=== PATIENT | male | born 1940 | race Caucasian/White ===

== ENCOUNTER 2016-08-25 14:20 | Emergency (ER) | payer MEDICARE, BC ==
[2016-08-25 14:31] VITALS: BP 156/72
[2016-08-25] MEDS ORDERED: AMIODARONE HCL 50 MG/ML AMPUL IV STA (14:46)
[2016-08-25] MEDS ORDERED: HEPARIN SODIUM,PORCINE/D5W 25,000 UNITS/500 ML BAG IV PRN (14:47)
[2016-08-25] MEDS ORDERED: HEPARIN SODIUM,PORCINE 5,000 UNITS/ML VIAL IV ONE (14:47)
[2016-08-25] MEDS ORDERED: HEPARIN SODIUM,PORCINE/D5W 25,000 UNITS/500 ML BAG IV ONE (14:52)
[2016-08-25] MEDS ORDERED: HEPARIN SODIUM,PORCINE 5,000 UNITS/ML VIAL ONE (14:52)
[2016-08-25 15:01] LABS: Hematocrit 41.5 % (42.0-52.0); Hemoglobin 13.8 gm/dL (13.5-18.0); Mean Cell Volume 92.2 fl (78-100); Mean Corpuscular Hemoglobin 30.7 pg (27-31); Mean Corpuscular Hgb Conc 33.3 g/dl (32-36); Mean Platelet Volume 11.1 fl (6.0-9.5); Neutrophil % 65.7 % (42-75.0); Platelet Count 176 K/mm3 (150-450); Red Cell Distribution Width 12.4 % (11.5-14.0); White Blood Count 7.5 K/mm3 (4.0-10.5)
[2016-08-25 15:06] LABS: Prothrombin Time (Patient) 10.7 Seconds (9.4-11.4)
[2016-08-25 15:07] LABS: INR 1.03 INR (0.90-1.10)
[2016-08-25 15:14] LABS: Albumin * 3.3 gm/dl (3.4-5.0); Anion Gap 10.5 mmol/L (6.8-13.8); BUN/Creatinine Ratio 19.1 (9.0-21.6); Bilirubin, Total 0.3 mg/dL (0.0-1.1); Ca. Corrected For Albumin 9.4 mg/dL (8.4-10.2); Calcium * 9.2 mg/dL (7.9-10.9); Carbon Dioxide 30.9 mmol/L (24-32.6); Potassium 4.4 mmol/L (3.4-4.6)
[2016-08-25 15:16] LABS: Troponin I 0.019 ng/ml (0.00-0.10)
--- NOTE | 2016-08-25 15:19 | ERNOTE ---
Chest Pain/Cardiac HPI Date of Service: 08/25/16 Chief Complaint: Palpitations Time Seen by Provider: 08/25/16 14:32 Source: patient Exam Limitations: no limitations Allergies/Adverse Reactions: Allergies penicillin G Allergy (Verified 08/25/16 14:31) steristrep Allergy (Uncoded 08/25/16 14:31) Home Medications: HOME MEDICATIONS Docusate Sodium [Stool Softener] 100 mg PO BID 01/18/13 [Last Taken Unknown] Iron 65 mg PO BID 01/18/13 [Last Taken Unknown] Metformin HCl [Metformin HCl ER] 1,000 mg PO BID 01/18/13 [Last Taken Unknown] Mirtazapine [Remeron] 30 mg PO HS 01/18/13 [Last Taken Unknown] Multivit-Min/FA/Lycopene/Lut [Centrum Silver Tablet] 1 each PO DAILY 01/18/13 [ Last Taken Unknown] Omeprazole Magnesium [Prilosec Otc] 20 mg PO DAILY 01/18/13 [Last Taken Unknown] Polyethylene Glycol 3350 [Miralax] 17 gm PO HS 01/18/13 [Last Taken Unknown] Quinapril HCl [Accupril] 400 mg PO DAILY 01/18/13 [Last Taken Unknown] Simvastatin [Simvastatin (Zocor)] 40 mg PO HS 01/18/13 [Last Taken Unknown] Spironolactone [Aldactone] 25 mg PO DAILY 01/18/13 [Last Taken Unknown] Torsemide [Demadex] 10 mg PO DAILY 01/18/13 [Last Taken Unknown] Aspirin [Aspirin Chewable] 81 mg PO DAILY 12/19/14 [Last Taken Unknown] Insulin Aspart Protam & Aspart [Novolog Mix 70/30] 34 units SC BID 12/19/14 [ Last Taken Unknown] traMADol HCL [Ultram] 50 mg PO QID PRN #30 tab 12/20/14 [Last Taken Unknown] Celebrex 08/26/15 [Last Taken Unknown] Novolog Flexpen 08/26/15 [Last Taken Unknown] Narrative: Patient comes due to a near syncopal event associated to a fast heart rate. No loss of consciousness occurred in this event. Timing: intermittent Severity/Quality: pressure Location: central Chest Pain Radiation: no radiation Activities at Onset: rest Modifying Factors - Improves: Present: nothing Modifying Factors - Worsens: Present: nothing Nitro Today/Relief: no nitro taken today Aspirin Treatment Today: 81 mg x 1 Associated Symptoms: Present: dizziness, shortness of breath, diaphoresis, palpitations, nausea Prior Chest Pain/Cardiac Workup: Reports: prior chest pain, other - Hx of arrhythmia Prior Treatment: Denies: recently seen Review of Systems - Review of Systems Constitutional: Present: weakness, malaise EYE: Present: no symptoms reported ENT: Present: no symptoms reported Respiratory: Present: shortness of breath. Absent: cough Cardiology: Present: chest pain, palpitations, other - near syncope. Absent: syncope, edema, claudication Gastrointestinal/Abdominal: Present: nausea Genitourinary: Present: no symptoms reported Musculoskeletal: Present: no symptoms reported Skin: Present: no symptoms reported Neurological: Present: no symptoms reported Endocrine: Present: no symptoms reported Hematologic/Lymphatic: Present: no symptoms reported Psych: Present: no symptoms reported - Patient's Past Medical History Patient History - Medical: Diabetes Type 2 Insulin Dependent Patient History - Cancer: Melanoma Patient History - Surgical Procedures: Cataracts, EGD, Total Knee Replacement - Social History Living Situations: home Smoking Status: Never smoker Have you smoked in the past 12 months: No Physical Exam - Physical Exam General Appearance: Present: alert, no apparent distress, obese Eye Exam: Normal inspection: bilateral, PERRL: bilateral, EOMI: bilateral Ears, Nose, Throat: Present: normal ENT inspection, hearing grossly normal, normal pharynx Neck: Present: normal inspection, nontender. Absent: carotid bruit Respiratory: Present: no respiratory distress, normal breath sounds, no accessory muscle use, chest nontender, lungs clear Cardiovascular/Chest: Present: irregularly irregular, extra beats, systolic murmur Peripheral Pulses: N=norm/S=strong/W=weak/B=bound/A=absent: Carotid (R): Normal , Carotid (L): Normal, Radial (R): Normal, Radial (L): Normal, Dorsalis-pedis (R ): Normal, Dorsalis-pedis (L): Normal Gastrointestinal/Abdominal: Present: normal bowel sounds, nontender, nondistended, soft, no organomegaly Male Genitals Exam: Present: normal genitalia, normal prostate, no hernia Back Exam: Present: normal inspection, no CVA tenderness Extremity Exam: Present: normal inspection, non-tender, normal range of motion, pelvis stable, pedal edema Neurological Exam: Present: alert, oriented, normal mood/affect, no motor/ sensory deficits Skin Exam: Present: normal color, warm/dry Lymphatic Exam: Present: no adenopathy ED Progress - Date and Time Seen: Date and Time: 08/25/16 15:09 Patient was on monitor when a sustained Ventricular Tach was noticed. Patient was place on cardiac defibrillator and event broke. Patient had two more events. Patient was given Amiodaron IV and events were controlled. Patient case was consulted at the and Dr. Leonid Moore accepted patient in transfer. Patient has a established relationship with the Cardiac Service at that institution. At this point [facility] has decline transport by [facility] due to weather conditions. Patient has been stabilized up the maximum level that this facility allow. Patient is stable for transfer. 08/25/16 15:31 [facility] has been informed that patient is stable and needs transport. - Results and Orders Patient's Lab Results:: I have reviewed the patient's lab results. Results and Orders: Patient with normal Hgb, normal creatinine and K level. - Vital Signs Patient's Vital Signs:: I have reviewed the patient's vital signs. Vital Signs: Vital Signs 08/25/16 14:29 Pulse Rate 95 Respiratory 14 Rate Blood Pressure 156/72 O2 Sat by Pulse 96 Oximetry - EKG EKG read: Interp. by me EKG Comments: HR: 94, PVCs, No ST Elevation Patient on engine monitor developed VT with pulse. - X-Ray X-Ray #1 X-Ray: chest Interpretation: Interp. by me X-ray Comments: No infiltrates and no consolidations - Progress/Reassessment Chief Complaint: Palpitations Progress:: Improved Progress Note-Subjective: 08/25/16 15:32 Patient is now on a non shockable rhythm. - Transfer of Care Expected Disposition: Transfer Additional Notes: Patient has Hx of VT and has been seen before at the Departure - Departure Clinical Impression: Ventricular tachycardia, Near syncope Disposition: [facility] Condition: Good Referrals: Ulices Buenrostro MD [Primary Care Provider] -
== END 2016-08-25 15:48 | disposition short-term general hospital (02) ==
LOC: ER 14:20
DX: I47.2 Ventricular tachycardia (principal); R55 Syncope and collapse

== ENCOUNTER 2016-09-09 14:29 | Emergency (ER) | payer MEDICARE, BC ==
[2016-09-09 15:18] LABS: Hematocrit 38.5 % (42.0-52.0); Hemoglobin 12.4 gm/dL (13.5-18.0); Mean Cell Volume 93.9 fl (78-100); Mean Corpuscular Hemoglobin 30.2 pg (27-31); Mean Corpuscular Hgb Conc 32.2 g/dl (32-36); Mean Platelet Volume 10.4 fl (6.0-9.5); Neutrophil # 4.4 K/mm3 (1.3-6.0); Neutrophil % 59.9 % (42-75.0); Platelet Count 196 K/mm3 (150-450); Red Cell Distribution Width 12.7 % (11.5-14.0); White Blood Count 7.3 K/mm3 (4.0-10.5)
--- NOTE | 2016-09-09 15:37 | ERNOTE ---
CARDIAC HPI - Narrative Date of Service: 09/09/16 - General Stated Complaint:: Palpitations Time Seen by Provider: 09/09/16 15:10 Source: patient, RN notes reviewed, old records Exam Limitations: no limitations - Pain Score Pain Score #1 Pain Score: 0 - History of Present Illness Initial Comments: 76 y/o male to ED by private vehicle for 3 days of feeling like he is "missing beats." He was discharged from [facility] on 09/05/16. He underwent an ablation for ventricular tachycardia on 09/03/16. He had no further arrhythmias and was discharged home on a Holter monitor. He also reports occasional lightheadedness , but no chest pain or shortness of breath. 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 He did see his PCP, Dr. Buenrostro , for follow up yesterday. He reported some lightheadedness but no palpitations at that visit. Timing/Duration: intermittent Activities at Onset: none Modifying Factors - (Improves): Denies: lying down, rest Modifying Factors - (Worsens): Denies: exercise, movement Associated Symptoms: Absent: chest pain, cough, fever/chills, headaches, malaise , nausea, vomiting, shortness of breath, syncope, weakness - Immun/Allergies/Home Medicatons Immunizations: IMMUNIZATION HX Immunizations Up to Date Yes History of Influenza Vaccine Yes Hx Pneumococcal Vaccination Yes Allergies/Adverse Reactions: Allergies Allergy/AdvReac Type Severity Reaction Status Date / Time penicillin G Allergy Verified 09/09/16 14:52 steristrep Allergy Uncoded 08/25/16 14:31 Home Medications: Ambulatory Orders Medication Instructions Recorded Docusate Sodium [Stool Softener] 100 mg PO BID 01/18/13 Iron 25 mg PO BID 01/18/13 Metformin HCl [Metformin HCl ER] 1,000 mg PO BID 01/18/13 Mirtazapine [Remeron] 30 mg PO HS 01/18/13 Multivit-Min/FA/Lycopene/Lut 1 each PO DAILY 01/18/13 [Centrum Silver Tablet] Omeprazole Magnesium [Prilosec Otc] 20 mg PO DAILY 01/18/13 Polyethylene Glycol 3350 [Miralax] 17 gm PO HS 01/18/13 Quinapril HCl [Accupril] 40 mg PO DAILY 01/18/13 Simvastatin [Simvastatin (Zocor)] 40 mg PO HS 01/18/13 Spironolactone [Aldactone] 25 mg PO DAILY 01/18/13 Torsemide [Demadex] 20 mg PO DAILY 01/18/13 Aspirin [Aspirin Chewable] 81 mg PO DAILY 12/19/14 Insulin Aspart Protam & Aspart 32 units SC BID 12/19/14 [Novolog Mix 70/30] traMADol HCL [Ultram] 50 mg PO QID PRN #30 tab 12/20/14 Celebrex 100 mg PO DAILY 08/26/15 Novolog Flexpen 0 units .ROUTE QID 08/26/15 Flecainide Acetate [Tambocor] 50 mg PO BID #30 tablet 09/09/16 Metoprolol Tartrate [Lopressor] 25 mg PO BID #60 tab 09/09/16 Review of Systems - Review of Systems Constitutional: Absent: chills, fever, malaise EENTM: Present: no symptoms reported Respiratory: Absent: short of breath, wheezing Cardiology: Present: palpitations. Absent: chest pain, syncope Gastrointestinal/Abdominal: Absent: abdominal pain, nausea Genitourinary: Present: no symptoms reported Musculoskeletal: Present: no symptoms reported Skin: Present: no symptoms reported Neurological: Present: dizziness/light-headness. Absent: headache, weakness Endocrine: Present: no symptoms reported Hematologic/Lymphatic: Present: no symptoms reported - Patient's Past Medical History Patient History - Medical: Diabetes Type 2 Insulin Dependent, GERD Patient History - Cardiac/Respiratory: Arrhythmias - VTach, Coronary Heart Disease, Hypertension, Hyperlipidemia, Other Patient History - Cancer: Melanoma Patient History - Surgical Procedures: Cataracts, EGD, Total Knee Replacement Patient History - Other: None - Social History Living Situations: home Abuse History: No History of abuse Psych History: No pertinent hx Smoking Status: Never smoker Have you smoked in the past 12 months: No Alcohol Use: none Drug Use: none - Immunizations Immunizations Up to Date: Yes Hx Pneumococcal Vaccination: Yes History of Influenza Vaccine: Yes CP Exam - Physical Exam General Appearance: Present: WD/WN, no apparent distress, alert Neck: Present: non-tender, supple, normal inspection Respiratory: Present: lungs clear, normal breath sounds, no respiratory distress , no accessory muscle use Cardiovascular/Chest: Present: normal peripheral pulses, no edema, no murmur, irregularly irregular Gastrointestinal/Abdominal: Present: normal bowel sounds, non tender, soft Neurologic: Present: alert, normal mood/affect, oriented x 3 Skin Exam: Present: normal color, warm/dry, no cyanosis ED Progress - PROGRESS/REASSESSMENT Chief Complaint: General Assessment Condition: Unchanged Progress Note-Subjective: 09/09/16 16:[address] Mcmahon at [facility] regarding patient's symptoms. He reviewed the patient's event monitor records. Started Metoprolol and Flecanide per his recommendations. His office is to contact the patient regarding moving up his follow up appointment. Patient in agreement with plan. - VITAL SIGNS Patient's Vital Signs:: I have reviewed the patient's vital signs. Vital Signs - Last Taken Temp 35.9 C L 09/09/16 14:35 Pulse 85 09/09/16 14:35 Resp 20 09/09/16 14:35 BP 125/71 09/09/16 14:35 Pulse Ox 96 09/09/16 14:35 - RESULTS AND ORDERS Patient's Lab Results:: I have reviewed the patient's lab results. Results and Orders: Abnormal/Pending Laboratory Last 24 HRS 09/09/16 15:10 RBC 4.10 L Hgb 12.4 L Hct 38.5 L MPV 10.4 H Immature Gran % (Auto) 0.80 H Immature Gran # (Auto) 0.06 H Monocytes % 9.1 H Eosinophils % 3.8 H - EKG EKG #1 EKG: NSR, premature vent. contract. EKG Read: Reviewed by me - X-Ray X-Ray #1 XRAY: chest X-Ray Interpretation: Reviewed by me X-Ray Comments: Stable chest, no acute cardiopulmonary abnormalities Departure - Departure Clinical Impression: Palpitations, Premature ventricular beats Disposition: Home Follow Up Needed Condition: Stable Instructions: Palpitations, [id number] Additional Instructions: Start new medications Continue wearing your monitor Return for worsening symptoms Dr. Mcmahon's office will call you regarding follow up Referrals: Ulices Buenrostro MD [Primary Care Provider] - Prescriptions: Flecainide Acetate [Tambocor] 50 mg PO BID #30 tablet Metoprolol Tartrate [Lopressor] 25 mg PO BID #60 tab
[2016-09-09 15:39] LABS: Anion Gap 14.1 mmol/L (6.8-13.8); BUN/Creatinine Ratio 17.1 (9.0-21.6); Bilirubin, Total 0.3 mg/dL (0.0-1.1); Ca. Corrected For Albumin 9.1 mg/dL (8.4-10.2); Calcium * 8.6 mg/dL (7.9-10.9); Carbon Dioxide 29.1 mmol/L (24-32.6); Potassium 4.2 mmol/L (3.4-4.6); Total Protein 6.8 gm/dL (6.2-8.2)
[2016-09-09 15:41] LABS: Troponin I 0.097 ng/ml (0.00-0.10)
[2016-09-09 15:42] LABS: Prothrombin Time (Patient) 10.8 Seconds (9.4-11.4)
[2016-09-09 15:44] LABS: INR 1.04 INR (0.90-1.10); Partial Thrombolplastin Time 25.8 Seconds (24-32)
[2016-09-09] MEDS ORDERED: METOPROLOL TARTRATE 25 MG TABLET PO ONE (16:13)
[2016-09-09] MEDS ORDERED: FLECAINIDE ACETATE 100 MG TABLET PO PRN (16:24)
[2016-09-09] MEDS ORDERED: METOPROLOL TARTRATE 25 MG TABLET ONE (16:42)
[2016-09-09 16:49] VITALS: BP 116/53
== END 2016-09-09 16:50 | disposition home or self-care (01) ==
LOC: ER 14:29
DX: R00.2 Palpitations (principal); I49.3 Ventricular premature depolarization; E11.9 Type 2 diabetes mellitus without complications; Z79.4 Long term (current) use of insulin; K21.9 Gastro-esophageal reflux disease without esophagitis; R07.9 Chest pain, unspecified

== ENCOUNTER 2016-09-14 13:15 | Emergency (ER) | payer MEDICARE, BC ==
--- OUTSIDE RECORDS SUMMARY | 2016-09-14 13:34 | XMS REPORT | Continuity of Care Document ---
:1940 Author Organization [facility] ([facility]) Address [address] [place] [address] Phone [phone] Care Team Providers Name Role Phone Ulices Buenrostro Primary Care Provider [phone] Source Comments This disclosure is being made pursuant to the Care Everywhere program, applicable federal and state laws, and may not contain all informaitonavailable regarding this patient.[facility] ([facility]) Active Allergies and Adverse Reactions Allergen Noted Date Severity Reactions Comments Other Agent 06/27/2013 OTHER Steri Strips gave him blood blisters Penicillins Low Urticaria (Hives),Pruritus,Rash Current Medications Prescription Sig. Disp. Refills Start End Date Status Date polyethylene glycol Take 17 g by Active 3350 (GLYCOLAX) 17 mouth as needed. gram/dose powder mirtazapine 30 mg Take 30 mg by Active tablet mouth at bedtime. ferrous sulfate Take 65 mg by Active (IRON, FERROUS mouth 2 times SULFATE,) 325 mg daily. (65 mg iron) tablet multivitamins w/ Take 1 Tab by Active minerals (CENTRUM mouth daily. SILVER) tablet omeprazole Take 20 mg by Active (PRILOSEC OTC) 20 mouth daily. mg EC tablet simvastatin 40 mg Take 40 mg by Active tablet mouth every evening. spironolactone 25 Take 25 mg by Active mg tablet mouth daily. torsemide 20 mg Take 1 Tab by 90 Tab 3 Active tablet mouth daily. 3 Indications: EDEMA docusate (COLACE) Take 1 Cap by 60 Cap 3 Active 100 mg capsule mouth 2 times 3 daily. Indications: CONSTIPATION quinapril 40 mg Take 40 mg by Active tablet mouth daily. fluticasone 50 use 2 Sprays into Active mcg/Actuation nasal both nostrils spray daily as needed. SUPPLY insulin 2 times daily. Active syringe w/ needle 4 U-100 1 mL 30 g x /16" metFORMIN 1,000 mg Take 1 Tab by 180 Tab 3 Active tablet mouth 2 times 4 daily. Indications: TYPE 2 DIABETES MELLITUS aspirin 81 mg EC Take 81 mg by Active tablet mouth 2 times daily. celecoxib 100 mg Take 1 capsule 30 capsule 6 Active capsule (100 mg total) by 6 mouth daily. traMADol 50 mg Take 1 tablet (50 80 tablet 0 Active tablet mg total) by 6 mouth every 8 hours as needed. insulin regular Inject 4 units 10 mL 11 Active (NovoLIN R) 100 with lunch. 6 unit/mL injection vial insulin aspart mix Inject 34 units Active (NovoLOG 70-30) 100 before breakfast unit/mL injection and before vial supper. insulin aspart mix Inject 32 units 20 mL 11 08/26/19 Discontinued (NovoLOG 70-30) 100 before breakfast 6 17 unit/mL injection and before vial supper. Active Problems Problem Noted Date DM2 (diabetes mellitus, type 2) 09/02/2016 Gastroesophageal reflux disease without esophagitis 09/02/2016 Right hip pain 11/26/2015 Spinal stenosis, lumbar region, with neurogenic claudication 11/11/2013 Bradycardia 09/17/2013 S/P knee replacement 06/28/2013 Surgical aftercare, musculoskeletal system 06/28/2013 Visit for wound check 06/19/2013 Total knee replacement status 06/13/2013 Postoperative pain 06/13/2013 Postoperative anemia 06/13/2013 Osteoarthritis of right knee 06/13/2013 Preoperative cardiovascular examination 04/24/2013 VT (ventricular tachycardia) 04/24/2013 Hyperlipidemia 04/24/2013 Edema of both legs 04/24/2013 Lumbar stenosis with neurogenic claudication 03/26/2013 CAD (coronary artery disease) 01/22/2013 Overview: 40 % LAD lesion CHF (congestive heart failure) 01/22/2013 Ventricular tachycardia 01/18/2013 Overview: radio-frequency catheter ablation of an aortic cusp tachycardia, using 3-D mapping via a retrograde aortic approach done 01/21/13 ACS (acute coronary syndrome) 01/18/2013 Knee osteoarthritis 01/07/2013 HTN (hypertension) 01/07/2013 Other and unspecified hyperlipidemia 01/07/2013 Type 2 diabetes mellitus with hyperglycemia 01/07/2013 Primary localized osteoarthrosis, lower leg 06/24/2002 Pain in joint, lower leg 10/20/2000 Knee joint replacement by other means 10/13/2000 Most Recent Encounters Date Type Specialty Providers Description 09/13/2016 Office Visit Med GI/Hepatology El Ja Beltran, Subj: Appointment MD canceled 09/09/2016 Telephone Heart and Vascular Salvatore Mcmahon, Chief Comp: MD Consultation 09/07/2016 Nurse Triage General Care Carmen Traore, Chief Comp: 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 Follow-up Call 09/05/2016 Office Visit Heart and Vascular Default, Other Subj: Appointment Billg - Defo Scheduled Ghassan Velásquez MD 09/01/2016 Surgery Cardiology Salvatore Mcmahon, Ablation Ventricular MD Tachycardia 08/31/2016 Anesthesia Event Cardiology Shanique Yang 08/26/2016 Hospital Encounter Heart and Vascular Segun, Comp: Patient Ghassan Oreilly MD Reported Reason For Visit 08/25/2016 - Hospital Encounter General Care Jessica Bryan, Dx: Cardiac 09/05/2016 Inpatient - Adult arrhythmia, Roddy Parra Z, unspecified cardiac arrhythmia type Oswaldo Jennings MD (Primary Dx) Arsenio Calvillo MD Bailin, Steven J, MD 06/20/2016 Office Visit Diabetes Services Yuri Ramos Dx: Type 2 diabetes MD Hank mellitus with Pearl Simpson hyperglycemia, with LAKESHIA Alvarado long-term current use of insulin (Primary Dx) Immunizations Name Dates Previously Given Next Due Influenza, unspecified 05/07/2013,05/07/2012 Pneumococcal Conjugate, unspecified 11/03/2015 Social History Tobacco Use Types Packs/Day Years Used Date Never Smoker Smokeless Tobacco: Never Used Tobacco Cessation:Counseling Given: Yes Comments: Alcohol Use Drinks/Week oz/Week Comments No Last Filed Vital Signs Vital Sign Reading Time Taken Blood Pressure 111/49 09/05/2016 2:40 PM [employer] Pulse 65 09/04/2016 11:58 PM [employer] Temperature 36.9 C (98.4 F) 09/05/2016 9:10 AM [employer] Respiratory Rate 16 09/05/2016 2:40 PM [employer] Height 1.778 m (5' 10") 08/25/2016 9:01 PM [employer] Weight 115.4 kg (254 lb 6.6 oz) 09/05/2016 6:20 AM [employer] Body Mass Index 36.5 09/05/2016 6:20 AM [employer] Oxygen Saturation 94% 09/05/2016 2:40 PM [employer] Plan of Care Date Type Specialty Providers Description 11/01/2016 Appointment Heart and Vascular Salvatore Mcmahon MD Subj: Appointment [address] [place] [address] [phone] (Fax) 12/19/2016 Appointment Diabetes Services Yuri Ramos MD [address] [place] [address] [phone] (Fax) Subj: Appointment Pearl Simpson ARNP [address] [place] [address] [phone] (Fax) Scheduled Health Maintenance Due Date Last Done Comments Hepatitis B Vaccine (1 of 3 - 1940 Primary Series) Tdap Vaccine 1951 Td Vaccine 1958 Colonoscopy 1990 Zoster Vaccine 2000 Pneumococcal Vaccine (1 of 2 2005 11/03/2015 - PCV13) DIABETIC: Retinal Eye Exam 03/04/2013 DIABETIC: Cholesterol 01/19/2014 01/19/2013 Diabetic: Hdl 01/19/2014 01/19/2013 DIABETIC: Triglycerides 01/19/2014 01/19/2013 Influenza Vaccine: Seasonal 03/07/2016 05/07/2013, (#1) 05/07/2012 DIABETIC: Foot Exam 12/17/2016 12/18/2015 Diabetic: Ldl 12/17/2016 12/18/2015, 03/20/2015, 01/19/2013 DIABETIC: Microalbumin 12/17/2016 12/18/2015, 03/20/2015, 03/28/2014 DIABETIC: Hemoglobin A1C 02/22/2017 08/25/2016, Additional history exists 12/18/2015, 06/19/2015 Results from Last 3 Months BLOOD GLUCOSE, BEDSIDE (09/05/2016 11:37 AM)Only the most recent of40 resultswithin the time period is included. Component Value Range Glucose, Accu-Chek 283(H) 65-99 mg/dL Specimen Blood, capillary DIFFERENTIAL (09/05/2016 6:21 AM)Only the most recent of6 resultswithin the time period is included. Component Value Range % Neutrophils-Auto Diff 62.4 % Neutrophils-Auto Diff 5060 5096-8012 /MM3 % Lymphocytes-Auto Diff 25.5 % Lymphocytes-Auto Diff 2070 875-3300 /MM3 % Monocytes-Auto Diff 7.3 % Monocytes-Auto Diff 590 130-860 /MM3 % Eosinophils-Auto Diff 3.7 % Eosinophils-Auto Diff 300 40-390 /MM3 % Basophils 0.5 % Basophils-Auto Diff 40 10-136 /MM3 % Immature Granulocytes-Auto Diff 0.6 % Immature Granulocytes-Auto Diff 50 /MM3 Specimen Whole Blood CBC (COMPLETE BLOOD COUNT) (09/05/2016 6:21 AM)Only the most recent of6 resultswithin the time period is included. Component Value Range WBC Count 8.1 3.7-10.5 K/MM3 RBC Count 4.18(L) 4.50-6.20 M/MM3 Hemoglobin 12.6(L) 13.2-17.7 g/dL Hematocrit 38(L) 40-52 % MCV (Mean Corpuscular Volume) 91 82-99 FL MCH (Mean Corpuscular Hemoglobin) 30 25-35 PG MCHC (Mean Corpuscular Hemoglobin Concentration) 33 32-36 % Platelet Count 167 150-400 K/MM3 MPV (Mean Platelet Volume) 11.7 9.4-12.3 FL RBC Dist Width-STD 42.6 35.1-43.9 FL RBC Distrib Width 12.9 9.0-14.5 % Nucleated RBC 0 /100 WBC Specimen Whole Blood BASIC METABOLIC PANEL W/ CALCIUM (CHEM 8) (09/05/2016 6:21 AM)Only the most recent of12 resultswithin the time period is included. Component Value Range Sodium 141 135-145 mEq/L Potassium 4.7 3.5-5.0 mEq/L Chloride 103 95-107 mEq/L CO2 27 22-29 mEq/L Anion Gap 11 8-18 mEq/L BUN 15 10-20 mg/dL Creatinine 1.0Comment: 0.6-1.2 mg/dL Creatinine switched to enzymatic method on 12/14/2010.GFR equation switched to IDMS-traceable MDRD equation on 12/14/2010. Calculated GFR values are not valid in clinical settings where serum creatinine is changing. Glucose 137(H)Comment: 65-99 mg/dL The Expert Committee on the Diagnosis and Classification of Diabetes has defined impaired fasting glucose as greater than or equal to 100 mg/dL but less than 126 mg/dL.(Diabetes Care 28 (Suppl 1)S41,2005) Calcium 8.8 8.5-10.5 mg/dL Calculated GFR 73 >60 mL/min/1.73 m2 Specimen Blood CBC WITH DIFFERENTIAL (09/05/2016 6:21 AM)Only the most recent of6 resultswithin the time period is included. Specimen Whole Blood Narrative The following orders were created for panel order CBC WITH DIFFERENTIAL. Procedure Abnormality Status --------- ------ CBC (COMPLETE BLOOD COUNT)[[id number]] AbnormalFinal result DIFFERENTIAL[[id number]] Final result Please view results for these tests on the individual orders. CARD EP PROCEDURE (09/01/2016 6:40 PM) Salvatore Lagos MD 09/05/20164:49 PM EP Study and VT Ablation Procedure Report Date: 09/01/2016 History: Mr. Yu is a 76 y/o man with history of hypertension, hyperlipidemia, Diabetes Mellitus and idiopathic monomorphic ventricular tachycardia. He had presented in 2012 with symptomatic VT locally and was transferred to [facility] after cardioversion. At [facility], he underwent EPS in January 2013. At that time, his VT was easily inducible with extra-stimuli RV pacing with a drive-cycle length of 550 msec, and single extra stimuli at 280 or 270 msec. The patient's ventricular tachycardia had a cycle length of 320 msec, with a biphasic R-wave in lead I, and an inferior axis. Using a retrograde aortic approach, the tachycardia was mapped to the aortic root/LCC. A coronary angiogram was performed and subsequently RF ablation was performed. The tachycardia was non-inducible subsequently. He did well subsequently from a heart rhythm standpoint, but presented earlier last week with syncope. On evaluation in local ER, doylew was noted to have episodes of near syncope with runs of ventricular tachycardia. He was started on amiodarone and heparin and transferred to [facility] for further care. His arrhythmia was controlled with amiodarone. An echocardiogram was obtained which showed normal LVEF of 65% without any significant valvular abnormalities. His prior angiogram from 2012 had shown mild, non-obstructive CAD. His treatment options were discussed with him and after understanding risks, benefits and alternatives, he elected proceed with RF ablation. His amiodarone has been discontinued in anticipation of same. Rhythm strip from 08/25/2016 ECG from 01/2013 ECG with PVCs from 08/2016: Indications:PVC/VT Procedures: 24850GX ablation (including LV pacing, complete EP study, and mapping) Ablation of PVCs (a separate arrhythmia) 60918 Intracardiac ultrasound Sedation: The procedure was performed under general anaesthesia. Please see the anaesthesia record of the case for details. Methods: After the risks and benefits of the procedure were described in detail to the patient including potential risks of bleeding, infection, stroke, [place], , tamponade, vascular injury, requirement for permanent pacemaker, the patient agreed to undergo the procedure.The patient was brought to the Electrophysiology Laboratory in the fasting, unsedated state. General anaesthesia was induced by the anaesthesia service. The right and left groins was prepped in the usual sterile fashion and 1% lidocaine was used for local anesthesia. One sheath (5F) was placed in the right femoral artery under ultrasound guidance using the modified seldinger technique. This was later up-sized to the 10F arterial sheath.One sheath (7F) was placed in the were placed in the right femoral vein using modified Seldinger technique.This was later up-sized to the Mobi sheath. Two long sheaths (11F, 6F) were placed in the left femoral vein using ultrasound guidance. A CRD2 6F quadripolar catheters was placed to the RV apex.A decapolar CS catheter was placed to the CS. There was significant difficulty in advancing the CS catheter to the region of the AIV due to sub-selection of branches by the Bard catheter. Hence, it was decided to use Mobi sheath for support. The 7F sheath on the right femoral vein was wire-exchanged for the Mobi sheath and subsequently a [employer] Akins deflectable decapolar CS catheter was advanced to the distal CS via the Mobi sheath. Sensing and pacing were performed from all sites. An ICE catheter was advanced through the 11F sheath and was used to survey anatomy and create a 3D anatomic shell of the LV, LVOT and the aortic cusps. The Os of the Left Main coronary artery was mapped and marked using ICE guidance. Baseline ICE survey confirmed lack of a pericardial effusion. After the baseline EP study and induction of VT, the arterial sheath was up-sized to a 10F sheath. The PentaRay mapping catheter was advanced through the arterial sheath and was used to create morena electro-anatomic map of the LVOT and the aortic cusps. After mapping (described below), the PentaRay was exchanged for the D/F curve SmartTouch ablation catheter which was advanced to the Left Coronary Cusp. Ablation was subsequently performed in this region as described below. Post ablation at the LCC, the patient's PVCs were mapped using the PentaRay catheter to the inferior-basal septum and subsequently ablation was performed in this region. Sensing and pacing were performed from the LV. Ablation was performed in the LV.During LV mapping, IV heparin was given in bolus doses in order to maintain an ACT between 250-300s. After ablation in the LV, the CS catheter was removed and the ablation catheter was advanced through the Mobi sheath into the RV septum and further ablation was performed juxtaposed to the LV septal site. Following testing and ablation, the catheters were removed. The sheaths were removed in the EP lab and local hemostasis obtained with manual compression.The arteriotomy site was closed successfully with an angioseal. No immediate complications were noted.The patient was extubated and awokened from anaesthesia in the EP lab and then transferred to PACU for further care. Baseline Findings: Baseline rhythm: Sinus rhythm with frequent PVCs BCL: 898ms IA: 170 ms QRS: 82 ms, normal morphology QT: 429 ms Arrhythmias: The patient presented inSinus rhythm with frequent PVCs, occasionally in a quadrigeminy pattern. His PVC morphology was different from his VT morphology. His PVCs were pre-dominantlynegative in the inferior leads (II, III, aVF) and positive across the precordium (V1-V6) with a sharp upslope and a narrow duration. This suggested a inferior-basal- septal origin of the PVCs. His clinical VT morphology was right bundle, positive in inferior leads suggesting outflow tract origin and with a transition in V2-V3 suggesting LCC origin (where it was mapped previously in 2013). During EP study, VT was consistently induced using triple extra stimulus pacing from the RV (290/250/230 ms extra-stimuli with a drive train of 500 ms). 4 VT morphologies were induced with EP study suggesting different exit sites from the LCC origin. His clinical VT morphology is shown below. Clinical VT (LCC origin) [place] VT: Mapping/Ablation: After up-sizing the arterial access, a PentaRay mapping catheter was introduced and fluoroscopically advanced to the region of the coronary cusps. Using the carto-sound shell, fluoroscopic landmarks and ICE, electro-anatomic mapping was carried out in the regions of the coronary cusps. Mid-diastolic late potentials were re-producibly noted at several sites along the left coronary cusp as shown below. The PentaRay also showed highly fractionated late systolic potentials in the LCC (see below). These sites were marked on the CARTO3 mapping system. A pace-map created using the PentaRay catheter from this site appeared to closely match the VT morphology. Late potentials noted on PentaRay during mapping in the LCC. Highly Fractionated signals noted on PentaRay (mapping in LCC) Subsequently, the PentaRay catheter was exchanged for a PlayData D/F curve ablation catheter and RF ablation was carried out at the previously marked sites. General ablation settings included a power between 25-35 Day with temperature and impedance monitoring. A total of 5 RF lesions were delivered at these previously marked sites in the LCC. The ablation catheter tip was far from the origin of the Left Main Ostium as marked on carto-sound map and as visualized by ICE during ablation.Patient's ECG was monitored closely during ablation for any ST elevations or other ischemic changes and none were noted. After ablation, attempts were made to re-induce VT using burst and multi-stimuli pacing from the RV (upto triple extra-stiumuli). Despite aggressive pacing maneuvers, no VT was inducible post ablation (other than non-sustained, polymorphic VT). Pacing maneuvers were repeated at end of case and once again, the clinical VT was not inducible. Next, attention was diverted to the patient's PVC. His PVCs were pre-dominantly negative in the inferior leads (II, III, aVF) and positive across the precordium (V1-V6) with a sharp upslope and a narrow duration. This suggested a inferior-basal- septal origin of the PVCs. Using the PentaRay catheter and CARTO/ICE guidance, the inferior basal septum of the LV was mapped and the earliest sites marked (upto 35-40 ms earlier than QRS) on the LV basal septum. Subsequently, RF ablation was carried out in the LV septum at these sites. During RF ablation, there was consistent suppression of the PVCs, but recurrence of same once ablation was halted. Despite careful mapping and meticulous ablation at the earliest activation sites, we were unable to suppress the PVCs with RF ablation in the LV. It was then decided to pursue RF ablation from the RV septum, juxtaposed to the sites of interest in an attempt to ablation the likely deep PVC focus. The CS catheter was removed and the ablation catheter was introduced via the Mobi sheath into the RV and ablation was carried out at the juxtaposed sites on the RV septum. Once again, we were consistently able to achieve suppression of the PVCs with RF ablation, but were unable to fully suppress the PVCs. A total of 21 RF ablation lesions were delivered (total RF time 1816 seconds). It was subsequently decided to terminate the procedure. Pacing maneuvers were repeated for VT induction and once again the clinical VT was not inducible at the end of the case. ICE surveillance at end of case confirmed lack of pericardial effusion. Catheters were removed subsequently. ACT was checked and subsequently the venous sheaths were pulled and pressure was held for hemostasis. The arteriotomy site was successfully closed using angioseal. The patient was extubated in EP lab and awoken from anaesthesia. He was subsequently transferred to PACU for further care. Findings post-ablation: Baseline rhythm: Sinus rhythm with occasional PVCs BCL:1018 ms IA:206 ms QRS: 84 ms, normal morphology QT: 446 ms Conclusions: Successful RF ablation of clinical VT. Unsuccessful ablation of clinical PVCs due to deep location of substrate in the basal septum. Successful closure of arteriotomy site with angioseal. Plan: 1. Bed rest for 6 hours post procedure. Monitor groin sites closely. 2. Cardiac MRI tomorrow to define presence of underlying scar. 3. EP consult service following. Dr. Mcmahon was present for the entire procedure. Acosta Maldonado MD MPH Fellow, Cardiovascular Medicine Procedure Note Salvatore Mcmahon MD - [facility] Sep 01, 2016 10:14 PM [employer] EP Study and VT Ablation Procedure Report Date: 09/01/2016 History: Mr. Yu is a 76 y/o man with history of hypertension, hyperlipidemia, Diabetes Mellitus and idiopathic monomorphic ventricular tachycardia. Nevaeh presented in 2012 with symptomatic VT locally and was transferred to [facility] after cardioversion. At [facility], he underwent EPS in January 2013. At thattime, his VT was easily inducible with extra-stimuli RV pacing with adrive-cycle length of 550 msec, and single extra stimuli at 280 or 270 msec. The patient's ventricular tachycardia had a cycle length of 320msec, with a biphasic R-wave in lead I, and an inferior axis. Using aretrograde aortic approach, the tachycardia was mapped to the aortic root/LCC. A coronary angiogram was performed and subsequently RF ablationwas performed. The tachycardia was non-inducible subsequently. He did wellsubsequently from a heart rhythm standpoint, but presented earlier last week with syncope. On evaluation in local ER, doylew was noted to haveepisodes of near syncope with runs of ventricular tachycardia. He wasstarted on amiodarone and heparin and transferred to [facility] for further care. His arrhythmia was controlled with amiodarone. An echocardiogram wasobtained which showed normal LVEF of 65% without any significant valvularabnormalities. His prior angiogram from 2012 had shown mild, non-obstructive CAD. His treatment options were discussed with him andafter understanding risks, benefits and alternatives, he elected proceedwith RF ablation. His amiodarone has been discontinued in anticipation ofsame. Rhythm strip from 08/25/2016 ECG from 01/2013 ECG with PVCs from 08/2016: Indications: PVC/VT Procedures: 19931 VT ablation (including LV pacing, complete EP study, and mapping) Ablation of PVCs (a separate arrhythmia) 36551 Intracardiac ultrasound Sedation: The procedure was performed under general anaesthesia. Please see theanaesthesia record of the case for details. Methods: After the risks and benefits of the procedure were described in detail tot patient including potential risks of bleeding, infection, stroke, [place],, tamponade, vascular injury, requirement for permanent pacemaker, the patient agreed to undergo the procedure. The patient was brought [facility] in the fasting, unsedated state. Generalanaesthesia was induced by the anaesthesia service. The right and left groins was prepped in the usual sterile fashion and 1% lidocaine was usedfor local anesthesia. One sheath (5F) was placed in the right femoralartery under ultrasound guidance using the modified seldinger technique. This was later up-sized to the 10F arterial sheath. One sheath (7F) wasplaced in the were placed in the right femoral vein using modifiedSeldinger technique. This was later up-sized to the Mobi sheath. Two long sheaths (11F, 6F) were placed in the left femoral vein using ultrasoundguidance. A CRD2 6F quadripolar catheters was placed to the RV apex. Adecapolar CS catheter was placed to the CS. There was significant difficulty in advancing the CS catheter to the region of the AIV due tosub- selection of branches by the Bard catheter. Hence, it was decided touse Mobi sheath for support. The 7F sheath on the right femoral vein was wire-exchanged for the Mobi sheath and subsequently a CABIRI - Luv Thy Neighbor Outreach Programdeflectable decapolar CS catheter was advanced to the distal CS via theMobi sheath. Sensing and pacing were performed from all sites. An ICE catheter was advanced through the 11F sheath and was used to surveyanatomy and create a 3D anatomic shell of the LV, LVOT and the aorticcusps. The Os of the Left Main coronary artery was mapped and marked using ICE guidance. Baseline ICE survey confirmed lack of a pericardialeffusion. After the baseline EP study and induction of VT, the arterial sheath wasup- sized to a 10F sheath. The PentaRay mapping catheter was advancedthrough the arterial sheath and was used to create morena electro-anatomic map of the LVOT and the aortic cusps. After mapping (described below),the PentaRay was exchanged for the D/F curve SmartTouch ablation catheterwhich was advanced to the Left Coronary Cusp. Ablation was subsequently performed in this region as described below. Post ablation at the [facility], thepatient's PVCs were mapped using the PentaRay catheter to theinferior-basal septum and subsequently ablation was performed in this region. Sensing and pacing were performed from the LV. Ablation wasperformed in the LV. During LV mapping, IV heparin was given in bolusdoses in order to maintain an ACT between 250-300s. After ablation in the LV, the CS catheter was removed and the ablation catheter was advancedthrough the Mobi sheath into the RV septum and further ablation wasperformed juxtaposed to the LV septal site. Following testing and ablation, the catheters were removed. The sheaths were removed in the EPlab and local hemostasis obtained with manual compression. Thearteriotomy site was closed successfully with an angioseal. No immediate complications were noted. The patient was extubated and awokened fromanaesthesia in the EP lab and then transferred to PACU for further care. Baseline Findings: Baseline rhythm: Sinus rhythm with frequent PVCs BCL: 898 ms IA: 170 ms QRS: 82 ms, normal morphology QT: 429 ms Arrhythmias: The patient presented in Sinus rhythm with frequent PVCs, occasionally in a quadrigeminy pattern. His PVC morphology was differentfrom his VT morphology. His PVCs were pre-dominantly negative in the inferior leads (II, III, aVF) and positive across the precordium (V1-V6)with a sharp upslope and a narrow duration. This suggested ainferior-basal- septal origin of the PVCs. His clinical VT morphology was right bundle, positive in inferior leads suggesting outflow tract originand with a transition in V2-V3 suggesting LCC origin (where it was mappedpreviously in 2012). During EP study, VT was consistently induced using triple extra stimulus pacing from the RV (290/250/230 ms extra-stimuliwith a drive train of 500 ms). 4 VT morphologies were induced with EPstudy suggesting different exit sites from the LCC origin. His clinical VTmorphology is shown below. Clinical VT (LCC origin)[place] VT: Mapping/Ablation: After up-sizing the arterial access, a PentaRay mapping catheter wasintroduced and fluoroscopically advanced to the region of the coronarycusps. Using the carto-sound shell, fluoroscopic landmarks and ICE, electro-anatomic mapping was carried out in the regions of the coronarycusps. Mid-diastolic late potentials were re-producibly noted at severalsites along the left coronary cusp as shown below. The PentaRay also showed highly fractionated late systolic potentials in the LCC (seebelow). These sites were marked on the CARTO3 mapping system. A pace-mapcreated using the PentaRay catheter from this site appeared to closelymatch the VT morphology. Late potentials noted on PentaRay during mapping in the LCC.Highly Fractionated signals noted onPentaRay (mapping in LCC) Subsequently, the PentaRay catheter was exchanged for a SmartTouch D/Fcurve ablation catheter and RF ablation was carried out at the previouslymarked sites. General ablation settings included a power between 25-35 Day with temperature and impedance monitoring. A total of 5 RF lesionswere delivered at these previously marked sites in the LCC. The ablationcatheter tip was far from the origin of the Left Main Ostium as marked on carto-sound map and as visualized by ICE during ablation. Patient's ECGwas monitored closely during ablation for any ST elevations or otherischemic changes and none were noted. After ablation, attempts were made to re-induce VT using burst and multi-stimuli pacing from the RV (uptotriple extra-stiumuli). Despite aggressive pacing maneuvers, no VT wasinducible post ablation (other than non-sustained, polymorphic VT). Pacing maneuvers were repeated at end of case and once again, the clinical VT wasnot inducible. Next, attention was diverted to the patient's PVC. His PVCs werepre-dominantly negative in the inferior leads (II, III, aVF) and positiveacross the precordium (V1-V6) with a sharp upslope and a narrow duration. This suggested a inferior-basal- septal origin of the PVCs. Using thePentaRay catheter and CARTO/ICE guidance, the inferior basal septum of theLV was mapped and the earliest sites marked (upto 35-40 ms earlier than QRS) on the LV basal septum. Subsequently, RF ablation was carried out inthe LV septum at these sites. During RF ablation, there was consistentsuppression of the PVCs, but recurrence of same once ablation was halted. Despite careful mapping and meticulous ablation at the earliest activationsites , we were unable to suppress the PVCs with RF ablation in the LV. Itwas then decided to pursue RF ablation from the RV septum, juxtaposed to the sites of interest in an attempt to ablation the likely deep PVC focus.The CS catheter was removed and the ablation catheter was introduced viathe Mobi sheath into the RV and ablation was carried out at the juxtaposed sites on the RV septum. Once again, we were consistently able to achievesuppression of the PVCs with RF ablation, but were unable to fullysuppress the PVCs. A total of 21 RF ablation lesions were delivered (total RF time 1816 seconds). It was subsequently decided to terminate theprocedure. Pacing maneuvers were repeated for VT induction and once againthe clinical VT was not inducible at the end of the case. ICE surveillance at end of case confirmed lack of pericardial effusion. Catheters wereremoved subsequently. ACT was checked and subsequently the venous sheaths were pulled andpressure was held for hemostasis. The arteriotomy site was successfullyclosed using angioseal. The patient was extubated in EP lab and awoken from anaesthesia. He wassubsequently transferred to PACU for further care. Findings post-ablation: Baseline rhythm: Sinus rhythm with occasional PVCs BCL: 1018 ms IA: 206 ms QRS: 84 ms, normal morphology QT: 446 ms Conclusions: Successful RF ablation of clinical VT. Unsuccessful ablation of clinical PVCs due to deep location of substratein the basal septum. Successful closure of arteriotomy site with angioseal. Plan: 1. Bed rest for 6 hours post procedure. Monitor groin sites closely. 2. Cardiac MRI tomorrow to define presence of underlying scar. 3. EP consult service following. Dr. Mcmahon was present for the entire procedure. Acosta Maldonado MD MPH Fellow, Cardiovascular Medicine MAGNESIUM (09/01/2016 6:01 AM)Only the most recent of8 resultswithin the time period is included. Component Value Range Magnesium 1.6 1.5-2.9 mg/dL Specimen Blood CHEST- PA& LATERAL (08/26/2016 10:05 AM) Impressions Findings/Impression: Normal chest radiograph. Narrative Procedure: CHEST- PA & LATERAL Clinical Indication: Ventricular tachycardia, shortness of breath Technique: PA and lateral chest radiograph Comparison: Chest radiographs dated 01/18/2013 through 06/13/2013. Procedure Note Jose Luis, Incoming Imaging Results - MonAug 26, 2016 12:22 PM [employer] Procedure: CHEST- PA & LATERAL Clinical Indication: Ventricular tachycardia, shortness of breath Technique: PA and lateral chest radiograph Comparison: Chest radiographs dated 01/18/2013 through 06/13/2013. IMPRESSION Findings/Impression: Normal chest radiograph. ECHO ADULT - ECHOCARDIOGRAM, TRANSTHORACIC (08/26/2016 9:53 AM) Component Value Range Interpretation Summary TRANSTHORACIC ECHOCARDIOGRAM Normal left ventricular systolic function. LV Ejection Fraction=65% (based on visual estimate). Normal LV diastolic function. With the use of contrast, no obvious wall motion abnormalities are visualized E/E' ratio is 12, which is indeterminate for LV filling pressure prediction. Visualization of the RV chamber is limited Patient Height (cm) 177.8 cm Patient Weight (kg) 113.4 kg Systolic Pressure (mmHg) 134 mmHg Diastolic Pressure (mmHg) 62 mmHg BSA (meters^2) 2.3 m^2 Left Ventricle (LV) Upper limit of normal left ventricular size. Normal LV wall thickness. Normal left ventricular systolic function. Normal LV diastolic function. E/E' ratio is 12, which is indeterminate for LV filling pressure prediction. LV Ejection Fraction=65% (based on visual estimate). With the use of contrast, no obvious wall motion abnormalities are visualized. Right Ventricle (RV) Visualization of the RV chamber is limited Probably normal right ventricular systolic function. Left and Right Atria (LA, RA) Mildly enlarged left atrial size. Enlarged right atrial size. Mitral Valve (MV) Visualization of the Mitral Valve is limited No mitral regurgitation Tricuspid Valve (TV) Visualization of the Tricuspid Valve is limited No tricuspid stenosis. Trace Tricuspid regurgitation Unable to estimate pulmonary artery systolic or right ventricular systolic pressure from TR doppler Aortic Valve (AoV) The aortic valve structure is probably trileaflet - not all coronary cusps are visualized. No aortic regurgitation by color Doppler. No hemodynamically significant valvular aortic stenosis by doppler Pulmonic Valve (PV) Pulmonic valve is not visualized No pulmonic valve stenosis by doppler No pulmonic valvular regurgitation by color doppler. Aorta and Pulmonary Artery (Ao, PA) The aortic root, when measured at the annulus, is normal in size. The aortic annulus measures 2.6cm Pericardium/Pleura There is no pericardial effusion. Procedures Complete 2D with Doppler, Color Flow and image documentation ( [id number]) Ultrasound contrast - Definity([id number]) I personally viewed the echocardiogram and approve the above interpretation Inf. Vena Cava (IVC) / Pulm. Veins Visualization of the IVC is inadequate Technical Comments Exam performed by Dre Dumas under the supervision of Jodi Lemus. TDS due to patient body habitus. Primary ICD-9 Code Paroxysmal VT (427.1) IVSd 0.99 cm LVIDd 5.3 cm LVIDs 3.9 cm LVPWd 1.0 cm IVS/LVPW 0.98 Ao root diam 3.3 cm Ao root area 8.3 cm^2 LA dimension 3.9 cm LA/Ao 1.2 LVOT diam 2.4 cm LVOT area 4.5 cm^2 MV E max javed 93.8 cm/sec MV A max javed 63.7 cm/sec MV E/A 1.5 MV dec time 0.17 sec Low Range of LVEF 65 High Range of LVEF 65 Reason For Study VT Compressor Operator Portable Jodi Lemus Interpreting Physician Ghassan Cast electronically signed on 2016-08-26 13:06:58.967 TROPONIN T (08/26/2016 6:16 AM)Only the most recent of3 resultswithin the time period is included. Component Value Range Troponin-T <0.03 <=0.10 ng/mL Specimen Blood ECG - EKG 12 LEAD (08/25/2016 5:17 PM) Component Value Range ECG SEVERITY - ABNORMAL ECG - VENT. RATE 81 bpm RR 741 ms P-R INTERVAL 176 ms QRSD INTERVAL 94 ms QT INTERVAL 372 ms QTC INTERVAL 432 ms P AXIS -58 degrees QRS AXIS 8 degrees T WAVE AXIS 94 degrees REPORT SINUS OR ECTOPIC ATRIAL RHYTHM VENTRICULAR TRIGEMINY [Insig. Chg.] NONSPECIFIC T ABNORMALITIES, LATERAL LEADS [Remains] [Now Absent] SINUS RHYTHM No significant change Interpreting Physician: RONA STRAUSS MD HEMOGLOBIN A1C (08/25/2016 5:15 PM) Component Value Range Hemoglobin A1c 6.4(H)Comment: 4.8-6.0 % Glycemic Control Guidelines: Non-diabetic <6% Goal <7% Therapeutic Action >8% Estimated Average Glucose 137Comment: mg/dL The estimated average glucose (eAG) calculated from the HbA1c changed on 26/03.See Laboratory Bulletins in the Department of Pathology Laboratory Services Handbook for a full discussion.Not e that the new calculated glucose will now be lower.The A1c result is unchanged. Specimen Whole Blood PTT (PARTIAL THROMBOPLASTIN TIME) (08/25/2016 5:15 PM) Component Value Range PTT 46(H) 22-31 secs Specimen Blood PT/INR (PROTHROMBIN TIME/INR) VENOUS (08/25/2016 5:15 PM) Component Value Range PT (Prothrombin Time) 11 9-12 secs INR 1.0 <4.0 Specimen Blood PHOSPHORUS (08/25/2016 5:15 PM) Component Value Range Phosphorus 3.1Comment:New reference range installed 05/19/15. 2.5-4.5 mg/dL Specimen Blood LACTIC ACID, WHOLE BLOOD ([facility]) (08/25/2016 5:15 PM) Component Value Range Lactic Acid, Whole Blood 2.0Comment: 0.5-2.0 mEq/L Glycolate, the principle toxic metabolite of ethylene glycol, can cause artifactual elevation of measured lactate. Specimen Blood
[2016-09-14 13:58] LABS: Hemoglobin 11.7 gm/dL (13.5-18.0); Mean Cell Volume 94.5 fl (78-100); Mean Corpuscular Hemoglobin 30.7 pg (27-31); Mean Corpuscular Hgb Conc 32.5 g/dl (32-36); Mean Platelet Volume 11.6 fl (6.0-9.5); Neutrophil # 7.7 K/mm3 (1.3-6.0); Neutrophil % 76.8 % (42-75.0); Platelet Count 195 K/mm3 (150-450); Red Blood Count 3.81 M/mm3 (4.7-6.0); Red Cell Distribution Width 13.2 % (11.5-14.0)
[2016-09-14 14:00] LABS: INR 1.08 INR (0.90-1.10); Prothrombin Time (Patient) 11.2 Seconds (9.4-11.4)
[2016-09-14 14:10] LABS: Troponin I 0.017 ng/ml (0.00-0.10)
[2016-09-14 14:12] LABS: Anion Gap 16.2 mmol/L (6.8-13.8); BUN/Creatinine Ratio 20.6 (9.0-21.6); Bilirubin, Total 0.4 mg/dL (0.0-1.1); Ca. Corrected For Albumin 8.9 mg/dL (8.4-10.2); Calcium * 8.4 mg/dL (7.9-10.9); Carbon Dioxide 25.2 mmol/L (24-32.6); Potassium 4.4 mmol/L (3.4-4.6); Total Protein 6.5 gm/dL (6.2-8.2)
--- NOTE | 2016-09-14 14:51 | ERNOTE ---
Chest Pain/Cardiac HPI Date of Service: 09/14/16 Chief Complaint: Palpitations Time Seen by Provider: 09/14/16 13:23 Source: patient Exam Limitations: no limitations Immunizations: IMMUNIZATION HX Immunizations Up to Date Yes History of Influenza Vaccine Yes Hx Pneumococcal Vaccination Yes Allergies/Adverse Reactions: Allergies penicillin G Allergy (Verified 09/14/16 13:31) steristrep Allergy (Uncoded 09/14/16 13:31) Home Medications: HOME MEDICATIONS Docusate Sodium [Stool Softener] 100 mg PO BID 01/18/13 [Last Taken Unknown] Iron 25 mg PO BID 01/18/13 [Last Taken Unknown] Metformin HCl [Metformin HCl ER] 1,000 mg PO BID 01/18/13 [Last Taken Unknown] Mirtazapine [Remeron] 30 mg PO HS 01/18/13 [Last Taken Unknown] Multivit-Min/FA/Lycopene/Lut [Centrum Silver Tablet] 1 each PO DAILY 01/18/13 [ Last Taken Unknown] Omeprazole Magnesium [Prilosec Otc] 20 mg PO DAILY 01/18/13 [Last Taken Unknown] Polyethylene Glycol 3350 [Miralax] 17 gm PO HS 01/18/13 [Last Taken Unknown] Quinapril HCl [Accupril] 40 mg PO DAILY 01/18/13 [Last Taken Unknown] Simvastatin [Simvastatin (Zocor)] 40 mg PO HS 01/18/13 [Last Taken Unknown] Spironolactone [Aldactone] 25 mg PO DAILY 01/18/13 [Last Taken Unknown] Torsemide [Demadex] 20 mg PO DAILY 01/18/13 [Last Taken Unknown] Aspirin [Aspirin Chewable] 81 mg PO DAILY 12/19/14 [Last Taken Unknown] Insulin Aspart Protam & Aspart [Novolog Mix 70/30] 32 units SC BID 12/19/14 [ Last Taken Unknown] traMADol HCL [Ultram] 50 mg PO QID PRN #30 tab 12/20/14 [Last Taken Unknown] Celebrex 100 mg PO DAILY 08/26/15 [Last Taken Unknown] Novolog Flexpen 0 units .ROUTE QID 08/26/15 [Last Taken Unknown] Flecainide Acetate [Tambocor] 50 mg PO BID #30 tablet 09/09/16 [Last Taken Unknown] Metoprolol Tartrate [Lopressor] 25 mg PO BID #60 tab 09/09/16 [Last Taken Unknown] Narrative: Patient presents to the ED feeling SOB, generalized weakness. He has been having palpitations and dizziness since being released from [facility] after ablation on . He relates that today he has increased SOB with exertion and increased generalized weakness. He does not feel his legs are swelling. No calf pain of DVT Sx. No CP or pleuritic pain. He denies any Hx of CHF or being told he has CHF. Today he could not ambulate without needing to stop d/t SOB. He was told he may need a pacemaker and feels he needs this. Timing: getting worse Severity/Quality: other - denies CP Activities at Onset: other - waling Modifying Factors - Improves: Present: rest Modifying Factors - Worsens: Present: other - exertion Associated Symptoms: Present: dizziness, shortness of breath, palpitations, other - no focal weakness, generalized weakness. Absent: headache, cough, diaphoresis, fever/chills Prior Chest Pain/Cardiac Workup: Reports: other - recent ablation Prior Treatment: Reports: other - recent ablation [facility] Review of Systems - Review of Systems Constitutional: Absent: fever Respiratory: Present: shortness of breath Cardiology: Absent: chest pain Gastrointestinal/Abdominal: Absent: abdominal pain Genitourinary: Absent: dysuria Neurological: Present: See HPI All Other Systems: All systems neg except as marked - Patient's Past Medical History Patient History - Medical: Diabetes Type 2 Insulin Dependent, GERD Patient History - Cardiac/Respiratory: Arrhythmias, Coronary Heart Disease, Hypertension, Hyperlipidemia, Other Patient History - Cancer: Melanoma Patient History - Surgical Procedures: Cataracts, EGD, Total Knee Replacement Patient History - Other: None - Social History Living Situations: home Abuse History: No History of abuse Psych History: No pertinent hx Alcohol Use: none Drug Use: none - Immunizations Immunizations Up to Date: Yes Hx Pneumococcal Vaccination: Yes History of Influenza Vaccine: Yes Physical Exam - Physical Exam General Appearance: Present: alert, no apparent distress Eye Exam: Normal inspection: bilateral, PERRL: bilateral Ears, Nose, Throat: Present: normal ENT inspection Neck: Present: normal inspection Respiratory: Present: no respiratory distress, normal breath sounds, no accessory muscle use, chest nontender, other - faint rales in the bases Cardiovascular/Chest: Present: normal peripheral pulses, other - rate controlled , irregular Gastrointestinal/Abdominal: Present: normal bowel sounds, nontender, soft Back Exam: Absent: CVA tenderness (R), CVA tenderness (L) Extremity Exam: Present: other - trace pretibial edema Neurological Exam: Present: alert, normal mood/affect, no motor/sensory deficits , passport 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 - Vital Signs Patient's Vital Signs:: I have reviewed the patient's vital signs. Vital Signs: Vital Signs 09/14/16 09/14/16 09/14/16 13:27 13:37 14:00 Temperature 36.0 C L Pulse Rate 60 63 61 Respiratory 20 16 Rate Blood Pressure 126/47 131/44 O2 Sat by Pulse 97 93 Oximetry 09/14/16 14:38 Temperature Pulse Rate 56 L Respiratory 12 Rate Blood Pressure 107/53 O2 Sat by Pulse 97 Oximetry - EKG EKG: NSR EKG read: Reviewed by me EKG Comments: Rate 67. Frequent PVSc. Non-specific ST/T wave changes, no STEMI - X-Ray X-Ray #1 X-Ray: chest Interpretation: Reviewed by me X-ray Comments: I reviewed radiology report - Progress/Reassessment Chief Complaint: Palpitations Progress Note-Subjective: 09/14/16 14:50 Pt has new onset CHF, not symptomatic at rest. 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 D/W Dr Whitmore who accepts transfer. Departure - Departure Clinical Impression: SOB (shortness of breath), CHF (congestive heart failure), Heart palpitations Disposition: [facility] Condition: Stable Referrals: Ulices Buenrostro MD [Primary Care Provider] -
[2016-09-14 15:27] LABS: Urine Bilirubin Negative (NEGATIVE); Urine Ketone Negative (NEGATIVE); Urine Nitrite Negative (NEGATIVE); Urine Protein Negative (NEGATIVE); Urine Specific Gravity 1.015 SP.GR. (1.005-1.030); Urine Urobilinogen Normal (NORMAL)
[2016-09-14 15:38] LABS: Urine Appearance Clear; Urine Bacteria None Seen; Urine Blood 10 /ul (NEGATIVE); Urine Color Yellow; Urine RBC TRACE /hpf (0-5); Urine WBC None Seen /hpf (0-5)
[2016-09-14 15:52] VITALS: BP 125/54
== END 2016-09-14 16:33 | disposition short-term general hospital (02) ==
LOC: ER 13:15
DX: R06.02 Shortness of breath (principal); I50.9 Heart failure, unspecified; R00.2 Palpitations; Z85.820 Personal history of malignant melanoma of skin

== ENCOUNTER 2017-09-10 07:53 | Emergency (ER) | payer MEDICARE, BC ==
[2017-09-10] MEDS ORDERED: MORPHINE SULFATE 4 MG/ML SYRG IM ONE (08:41)
[2017-09-10] MEDS ORDERED: ORPHENADRINE CITRATE 30 MG/ML VIAL IM ONE (08:41)
[2017-09-10] MEDS ORDERED: MORPHINE SULFATE 4 MG/ML SYRG ONE (08:48)
[2017-09-10] MEDS ORDERED: ORPHENADRINE CITRATE 30 MG/ML VIAL ONE (08:48)
[2017-09-10 10:05] VITALS: BP 142/72
--- NOTE | 2017-09-10 10:16 | ERNOTE ---
Back Pain ER HPI Date of Service: 09/10/17 Presenting Symptoms: hx chronic back pain Time Seen by Provider: 09/10/17 08:40 Source: patient Exam Limitations: no limitations Immunizations: IMMUNIZATION HX Immunizations Up to Date Yes History of Influenza Vaccine Yes Hx Pneumococcal Vaccination Yes Allergies/Adverse Reactions: Allergies penicillin G Allergy (Verified 09/10/17 08:12) steristrep Allergy (Uncoded 09/10/17 08:12) Home Medications: HOME MEDICATIONS Docusate Sodium [Stool Softener] 100 mg PO BID 01/18/13 [Last Taken Unknown] Mirtazapine [Remeron] 30 mg PO HS 01/18/13 [Last Taken Unknown] Multivit-Min/FA/Lycopene/Lut [Centrum Silver Tablet] 1 each PO DAILY 01/18/13 [ Last Taken Unknown] Omeprazole Magnesium [Prilosec Otc] 20 mg PO DAILY 01/18/13 [Last Taken Unknown] Polyethylene Glycol 3350 [Miralax] 17 gm PO HS 01/18/13 [Last Taken Unknown] Quinapril HCl [Accupril] 40 mg PO DAILY 01/18/13 [Last Taken Unknown] Simvastatin [Simvastatin (Zocor)] 40 mg PO HS 01/18/13 [Last Taken Unknown] Spironolactone [Aldactone] 25 mg PO DAILY 01/18/13 [Last Taken Unknown] Torsemide [Demadex] 20 mg PO DAILY 01/18/13 [Last Taken Unknown] metFORMIN HCL [Metformin HCl ER] 1,000 mg PO BID 01/18/13 [Last Taken Unknown] Aspirin [Aspirin Chewable] 81 mg PO DAILY 12/19/14 [Last Taken Unknown] Insulin Aspart Prot/Insuln Asp [Novolog Mix 70/30] 32 units SC BID 12/19/14 [ Last Taken Unknown] Novolog Flexpen 0 units .ROUTE QID 08/26/15 [Last Taken Unknown] Metoprolol Tartrate [Lopressor] 25 mg PO BID #60 tab 09/09/16 [Last Taken Unknown] Cyclobenzaprine HCl [Flexeril] 10 mg PO TID PRN #30 tab 09/10/17 [Last Taken Unknown] HYDROcodone/ACETAMINOPHEN [Causey 5-325] 1 tab PO Q6H PRN #15 tab 09/10/17 [Last Taken Unknown] Narrative: Patient presents to the ED for left back pain. He relates that it is his left low back. There was no injury that he can recall. He has had pack problems for some time and has been seen at [facility] spine clinic before. He relates that this pain is a spasm-like pain that will "grab him". Low left back. No falls. He gets occasional left lower leg radicular pain but this is not acute. No N/ T/W. No fever. No trouble with bowel or bladder control. The pain can be brought in by turning or bending. Spasm-like pain. Pain can be severe when he gets a spasm. This has been on-going since , his doctor is out of town and he tried to call his [facility] doctor but return call so came in. Timing: Reports: intermittent, other - fluctuation Quality/Severity: Reports: moderate Location of pain: Reports: lower back Activities at Onset: Reports: none Recent Injury?: Reports: no Possible Precipitating Factor: Reports: none Modifying Factors - (Improves): Reports: other - rest Modifying Factors - (Worsens): Reports: movement to right, movement to left, movement flexion Associated Symptoms: Denies: fever/chills, sweating, constipation/incontinence, nausea/vomiting, problems urinating, difficulty walking, lightheadedness, numbess/weakness in legs Prior Treament: Denies: recently seen Review of Systems - Review of Systems Constitutional: Absent: fever Respiratory: Absent: shortness of breath Cardiology: Absent: chest pain Gastrointestinal/Abdominal: Absent: abdominal pain Genitourinary: Absent: dysuria, hematuria Musculoskeletal: Present: See HPI Skin: Absent: rash Neurological: Absent: weakness, numbness, tingling - Patient's Past Medical History Patient History - Medical: Diabetes Type 2 Insulin Dependent, GERD Patient History - Cardiac/Respiratory: Arrhythmias, Coronary Heart Disease, Hypertension, Hyperlipidemia, Other Patient History - Cancer: Melanoma Patient History - Surgical Procedures: Cataracts, EGD, Total Knee Replacement Patient History - Other: None - Social History Living Situations: home Abuse History: No History of abuse Psych History: No pertinent hx Alcohol Use: none Drug Use: none - Immunizations Immunizations Up to Date: Yes Hx Pneumococcal Vaccination: Yes History of Influenza Vaccine: Yes Physical Exam - Physical Exam General Appearance: Present: alert, no apparent distress Head Exam: Present: normal inspection, no evidence of injury Eye Exam: Normal inspection: bilateral, PERRL: bilateral Ears, Nose, Throat: Present: normal ENT inspection Neck: Present: normal inspection Respiratory: Present: no respiratory distress, normal breath sounds, no accessory muscle use Cardiovascular/Chest: Present: regular rate, rhythm Gastrointestinal/Abdominal: Present: normal bowel sounds, nontender, soft Back Exam: Present: normal inspection, muscle spasm, other - there is completely reproducible tenderness with palpation of the left low back musculature. With palpation here he grimaces and palpation completely reprodues his pain. No vertebral tenderness.. Absent: CVA tenderness (R), CVA tenderness (L), vertebral tenderness Extremity Exam: Present: normal inspection, normal range of motion Neurological Exam: Present: alert, no motor/sensory deficits, other - Full LE strength and sensation. Gait intact. Patellar tendon reflexes equal and symmetric. No suggestion of acute focal motor or sensory deficit. No suggestion of cauda equina syndrome. Skin Exam: Present: normal color, warm/dry ED Progress - Vital Signs Patient's Vital Signs:: I have reviewed the patient's vital signs. Vital Signs: Vital Signs 09/10/17 09/10/17 09/10/17 08:06 08:11 08:59 Temperature 36.1 C L Pulse Rate 73 71 74 Respiratory 14 14 14 Rate Blood Pressure 146/64 142/64 O2 Sat by Pulse 99 98 94 Oximetry 09/10/17 09/10/17 09/10/17 09:20 09:37 09:52 Temperature Pulse Rate 65 66 68 Respiratory 12 12 12 Rate Blood Pressure 130/64 157/77 132/82 O2 Sat by Pulse 94 94 96 Oximetry - X-Ray X-Ray #1 X-Ray: lumbosacral Interpretation: Interp. by me X-ray Comments: No real-time radiology reads. DJD, no clear acute fracture. - Progress/Reassessment Chief Complaint: Back Pain Progress Note-Subjective: 09/10/17 10:15 He was feeling improved with meds. he was wishing to go home. No suggestion of intra-abdominal process. No suggestion of urinarry etiology. No suggestion of fracture, infection, abscess, diskiitis or other acute life threat. No suggestion of neuro deficit or cauda-equina syndrome. I discussed warning signs and reasons to return as well as the need for close f/u. Departure Clinical Impression: Back pain - Departure Disposition: Home self-care Condition: Stable Instructions: Back Pain, Adult Additional Instructions: Referral to [facility]. No driving with pain medications. Return for increased pain, numbness, tingling, weakness, fever, trouble with bowel or bladder control or if your condition worsens or changes in any way. Referrals: Ulices Buenrostro MD [Primary Care Provider] - Prescriptions: Cyclobenzaprine HCl [Flexeril] 10 mg PO TID PRN #30 tab PRN Reason: MUSCLE SPASMS HYDROcodone/ACETAMINOPHEN [Causey 5-325] 1 tab PO Q6H PRN #15 tab PRN Reason: Pain
== END 2017-09-10 10:10 | disposition home or self-care (01) ==
LOC: ER 07:53
DX: M54.5 Low back pain (principal); E11.9 Type 2 diabetes mellitus without complications; Z79.4 Long term (current) use of insulin; E78.5 Hyperlipidemia, unspecified; I10 Essential (primary) hypertension; I50.9 Heart failure, unspecified; Z85.820 Personal history of malignant melanoma of skin; I25.10 Atherosclerotic heart disease of native coronary artery without angina pectoris

== ENCOUNTER 2018-07-15 12:43 | Observation (INO) | payer BC, MEDICARE ==
--- NOTE | 2018-07-15 12:52 | ERNOTE ---
Trauma/Assault HPI - Narrative Date of Service: 07/15/18 - General Stated Complaint: FALL Time Seen by Provider: 07/15/18 12:47 Source: patient Exam Limitations: no limitations - Immun/Allergies/Home Medications Immunizations: IMMUNIZATION HX Immunizations Up to Date Yes History of Influenza Vaccine Yes Hx Pneumococcal Vaccination Yes Allergies/Adverse Reactions: Allergies Steri Strip Adverse Reaction (Mild, Uncoded 07/15/18 16:24) Other Home Medications: HOME MEDICATIONS Polyethylene Glycol 3350 [Miralax] 17 gm PO HS PRN 01/18/13 [Last Taken Unknown] Simvastatin [Simvastatin (Zocor)] 40 mg PO HS 01/18/13 [Last Taken Unknown] Torsemide [Demadex] 20 mg PO DAILY 01/18/13 [Last Taken Unknown] Aspirin [Aspirin Chewable] 81 mg PO DAILY 12/19/14 [Last Taken Unknown] docusate sodium 100 mg tablet 200 mg PO BID 02/21/18 [Last Taken Unknown] gabapentin 300 mg capsule 300 mg PO BID 02/21/18 [Last Taken Unknown] insulin U- 100 regular human 100 unit/mL injection solution 4 units SUB-Q 1200 PRN 02/21/18 [Last Taken Unknown] insulin syringe U-100 with needle 0.3 mL 29 gauge x 1/2" See Dose Instructions .ROUTE .MEDSUPPLY #10 ea 02/21/18 [Last Taken Unknown] insulin syringe U-100 with needle 1 mL 29 gauge x 1/2" See Dose Instructions .ROUTE .MEDSUPPLY #1 ea 02/21/18 [Last Taken Unknown] mirtazapine 30 mg tablet 30 mg PO HS 02/21/18 [Last Taken Unknown] xmpepvkc-sfq-yjatd acid 0.4 mg-lycopene 300 mcg-lutein 250 mcg tablet 1 tab PO DAILY 02/21/18 [Last Taken Unknown] flash glucose sensor kit See Dose Instructions .ROUTE .MEDSUPPLY #3 ea 02/23/18 [Last Taken Unknown] insulin aspar prt-insulin aspart 100 unit/mL (70-30) subcutaneous soln 34 units SUB-Q .BREAKFAST 05/08/18 [Last Taken Unknown] metoprolol tartrate 25 mg tablet 25 mg PO HS tab 05/08/18 [Last Taken Unknown] Insulin Aspart Prot/Insuln Asp [Novolog Mix 70/30] 32 units SQ 1200,1700 07/15/18 [Last Taken Unknown] Metoprolol Tartrate 50 mg PO DAILY 07/15/18 [Last Taken Unknown] Omeprazole 40 mg PO DAILY 07/15/18 [Last Taken Unknown] Quinapril HCl 40 mg PO DAILY 07/15/18 [Last Taken Unknown] Spironolactone 25 mg PO DAILY 07/15/18 [Last Taken Unknown] metFORMIN HCL [Metformin HCl] 1,000 mg PO BID 07/15/18 [Last Taken Unknown] - Pain Pain Score #1 Pain Score: 4 - History of Present Illness Narrative: The patient is a 78 year old male who presents for fall which occurred at 1000. There are associated symptoms of pain to left knee and hip as well as low back into left buttock. The patient reports pain primarily to left medial knee, 4/10 . There are alleviating factors of rest. There are aggravating factors of weight bearing and full flexion. Previous treatments have included: none. The past medical history includes: ACS, cardiomegaly, CHF, CAD, DM, GERD, HLD, HTN, ARUN, osteoarthritis and spinal stenosis. The social history is negative. The patient has had no ill contacts. Patient states he was leaving [place] when he was getting onto the elevator which had not returned fully to ground level. Patient states he lost his balance falling due to 6 inch drop landing on his bilateral knees and walker. Patient denies striking head, neck pain or LOC. Location Occurred: Reports: other - [place] Pain Location: Reports: lower extremity Method of Injury: Reports: fall Loss of Consciousness: Reports: no loss of consciousness Review of Systems - Review of Systems Constitutional: Present: no symptoms reported. Absent: recent illness, fever, fatigue EYE: Present: no symptoms reported ENT: Present: no symptoms reported. Absent: ear pain, nasal drainage, sore throat Respiratory: Present: no symptoms reported. Absent: shortness of breath, cough Cardiology: Present: no symptoms reported. Absent: chest pain Gastrointestinal/Abdominal: Present: no symptoms reported. Absent: nausea, vo miting, diarrhea, abdominal pain Genitourinary: Present: no symptoms reported. Absent: dysuria, decreased urinary output Musculoskeletal: Present: back pain, joint pain Skin: Present: no symptoms reported. Absent: rash Neurological: Present: no symptoms reported Endocrine: Present: no symptoms reported Hematologic/Lymphatic: Present: no symptoms reported Psych: Present: no symptoms reported All Other Systems: All systems neg except as marked Medical History (Last Reviewed 07/15/18 @ 13:00 by YONATHAN Mitchell) ACS (acute coronary syndrome) Onset Date: Unknown Acute on chronic diastolic heart failure Onset Date: Unknown Bradycardia Onset Date: Unknown Cardiomegaly Onset Date: ~03/08/17 Congestive heart failure Onset Date: Unknown Coronary artery disease Onset Date: ~01/22/13 Diabetes mellitus Onset Date: Unknown With hyperglycemia Dysphagia Onset Date: ~01/25/16 More likely due to esophageal spasm GERD without esophagitis Onset Date: Unknown Hyperlipidemia Onset Date: Unknown Hypertension Onset Date: Unknown ARUN (obstructive sleep apnea) Onset Date: ~08/05/97 CPAP - 9 CWP Osteoarthritis Onset Date: Unknown Peripheral neuropathy Onset Date: Unknown Spinal stenosis of lumbar region Onset Date: Unknown With neurogenic claudication Melanoma Onset Date: Unknown Ventricular tachycardia Onset Date: ~03/08/17 Ventricular tachycardia with complex ventricular ectopy Surgical History: Surgical History (Last Reviewed 07/15/18 @ 13:00 by YONATHAN Mitchell) Cardiac defibrillator in place Onset Date: ~11/28/16 H/O angiography Onset Date: ~2012 Left ventriculography H/O colonoscopy Onset Date: ~2013 Pet patient; Dr. Gardner H/O prior ablation treatment Onset Date: ~09/01/16 VT Ablation performed at [facility] H/O shoulder surgery Onset Date: ~1992 Removal of melanoma History of cataract surgery Onset Date: Unknown Both eyes, L eye total fluid replacement for bleeding behind retina 1 year later History of esophagogastroduodenoscopy (EGD) Onset Date: Unknown With esophageal manometry History of lumbar fusion Onset Date: ~04/02/18 L1 to pelvic, two rods 10 screws History of total knee arthroplasty Onset Date: ~2000 1998 - left knee 2000 - Right knee Dr. Patel Pacemaker Onset Date: ~11/28/16 Previous back surgery Onset Date: Unknown S/P ICD (internal cardiac defibrillator) procedure Onset Date: Unknown Family History: Family History (Last Reviewed 07/15/18 @ 13:00 by YONATHAN Mitchell) Father Depression CHF (congestive heart failure) Mother Heart disease Grandmother Colon cancer Social History: Preferred Language Korean Smoking Status Never smoker Abuse History No History of abuse Psych History No pertinent hx (Last Updated 06/19/18 @ 10:10 by Ulices Buenrostro MD) No Social History Section defined Physical Exam - Physical Exam General Appearance: Present: wd/wn, alert, no apparent distress Head Exam: Present: normal inspection Neck: Present: normal inspection, nontender, full range of motion Respiratory: Present: no respiratory distress, normal breath sounds, no accessory muscle use, lungs clear Cardiovascular/Chest: Present: regular rate, rhythm, no murmur Peripheral Pulses: N=norm/S=strong/W=weak/B=bound/A=absent: Dorsalis-pedis (R): Normal, Dorsalis-pedis (L): Normal Gastrointestinal/Abdominal: Present: normal bowel sounds, nontender, nondistended - abdominal obesity, soft, no organomegaly Extremity Exam: Present: normal range of motion - to left hip and bilateral knees, pedal edema - 1+ pitting to bilateral ankles, bony tenderness - medial knee, other - no laxity to bilateral knees, able to hold full extension without difficulty. Neurological Exam: Present: alert, oriented, normal mood/affect Skin Exam: Present: normal color, warm/dry Progress - Date and Time Seen: Date and Time: 07/15/18 14:10 Reviewed xray results with patient. Patient able to transfer self from bed to wheelchair with use of walker but reports increased difficulty and pain to low back and weakness to left knee. Will administer Tylenol for pain and apply britney bandage to left knee for stability and reassess. 07/15/18 14:56 Patient having difficulty from continued weakness with transfers and getting up from sitting position, needing assist of 2. Patient states he feels he is unable to go home. - Vital Signs Patient's Vital Signs:: I have reviewed the patient's vital signs. Vital Signs: Vital Signs 07/15/18 12:44 Temperature 36.8 C Pulse Rate 71 Respiratory Rate 20 Blood Pressure 139/52 O2 Sat by Pulse Oximetry 94 - X-Ray X-Ray #1 X-Ray: knee Interpretation: Reviewed by me X-ray Comments: Previous replacement, no acute osseous abnormality. X-RAY REPORT ~[id number] RAD/Knee 3 Views LT *~ Exam Date: 07/15/2018 13:21 Ordering Physician: Farzana Alaniz Indication: fall Comparison: None Technique: Knee 3 Views LT * Findings: Decreased bony mineralization. Surgical hardware identified within the distal femur and proximal tibia. No evidence for complication appreciated. No fracture or dislocation. There are degenerative changes. There is a knee joint effusion. There are vascular calcifications. IMPRESSION: NO ACUTE OSSEOUS ABNORMALITY Electronically signed by Long Francois M.D.. X-Ray #2 X-Ray: lumbosacral Interpretation: Reviewed by me X-ray Comments: No acute osseous abnormality. X-RAY REPORT ~[id number] RAD/Lumbar Spine Complete W/Obl *~ Exam Date: 07/15/2018 13:23 Ordering Physician: Farzana Alaniz INDICATION: fall COMPARISON: 09/10/2017 TECHNIQUE: Lumbar Spine Complete W/Obl * FINDINGS: Extensive fusion hardware identified throughout the lumbar spine. No evidence for complication. There is retrolisthesis of L3 from L4. No acute fracture. There is multilevel degenerative disc disease. There is facet osteoarthropathy. IMPRESSION: 1. No acute osseous abnormality. Electronically signed by Long Francois M.D.. X-Ray #3 X-Ray: hip Interpretation: Reviewed by me X-ray Comments: No acute osseous abnormality. X-RAY REPORT ~[id number] RAD/Hip & Pelvis 2-3 views LT *~ Exam Date: 07/15/2018 13:23 Ordering Physician: Farzana Alaniz Indication: fall Comparison: Concurrent knee films Technique: Hip Pelvis 2-3 views LT * Findings: Normal bony mineralization and alignment. No fracture or dislocation. Degener ative and postsurgical changes are seen. No lytic or blastic changes. No soft tissue abnormality. IMPRESSION: NO ACUTE OSSEOUS ABNORMALITY Electronically signed by Long Francois M.D.. - Progress/Reassessment Chief Complaint: Fall Departure Clinical Impression: Weakness Knee pain, left Qualifiers: Chronicity: acute Qualified Code(s): M25.562 - Pain in left knee Fall Qualifiers: Encounter type: initial encounter Qualified Code(s): W19.XXXA - Unspecified fall, initial encounter - Departure Disposition: Still a patient Condition: Good Critical Care Time - Critical Care Critical Time Spent:: No
[2018-07-15] MEDS ORDERED: ACETAMINOPHEN 325 MG TABLET PO ONE (14:04)
--- NOTE | 2018-07-15 18:49 | HP ---
Chief Complaint - Chief Complaint Date of Service: 07/15/18 Time of Service: 18:48 Chief Complaint: fall History of Present Illness: Jose Yu, is a 78-year-old white male, patient of Dr. Buenrostro, with past medical history of diabetes mellitus type 2, hypertension, hyperlipidemia, coronary artery disease, ARUN, who was admitted on 07/15/2018 because of a fall and left knee pain. 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 He incurred left knee as well as left hip pain. His back was also a little sore. The patient says that if he is resting and laying down his pain is 2/10 but when he starts putting weight on it the pain is 9/10. His x-ray of the knee did not show any acute fracture or any hardware complication. His x-ray of his back showed degenerative disc disease. X-ray of his left hip showed no acute osseous findings. He had difficulty of ambulation due to pain and was admitted for observation. The patient desires to go to [facility] for rehabilitation. Medical History (Last Reviewed 07/15/18 @ 16:22 by Fatmata Mcwilliams RN) ACS (acute coronary syndrome) Onset Date: Unknown Acute on chronic diastolic heart failure Onset Date: Unknown Bradycardia Onset Date: Unknown Cardiomegaly Onset Date: ~03/08/17 Congestive heart failure Onset Date: Unknown Coronary artery disease Onset Date: ~01/22/13 Diabetes mellitus Onset Date: Unknown With hyperglycemia Dysphagia Onset Date: ~01/25/16 More likely due to esophageal spasm GERD without esophagitis Onset Date: Unknown Hyperlipidemia Onset Date: Unknown Hypertension Onset Date: Unknown ARUN (obstructive sleep apnea) Onset Date: ~08/05/97 CPAP - 9 CWP Osteoarthritis Onset Date: Unknown Peripheral neuropathy Onset Date: Unknown Spinal stenosis of lumbar region Onset Date: Unknown With neurogenic claudication Melanoma Onset Date: Unknown Ventricular tachycardia Onset Date: ~03/08/17 Ventricular tachycardia with complex ventricular ectopy Surgical History: Surgical History (Last Reviewed 07/15/18 @ 16:22 by Fatmata Mcwilliams RN) Cardiac defibrillator in place Onset Date: ~11/28/16 H/O angiography Onset Date: ~2012 Left ventriculography H/O colonoscopy Onset Date: ~2013 Pet patient; Dr. Gardner H/O prior ablation treatment Onset Date: ~09/01/16 VT Ablation performed at [facility] H/O shoulder surgery Onset Date: ~1992 Removal of melanoma History of cataract surgery Onset Date: Unknown Both eyes, L eye total fluid replacement for bleeding behind retina 1 year later History of esophagogastroduodenoscopy (EGD) Onset Date: Unknown With esophageal manometry History of lumbar fusion Onset Date: ~04/02/18 L1 to pelvic, two rods 10 screws History of total knee arthroplasty Onset Date: ~2000 1998 - left knee 2000 - Right knee Dr. Patel Pacemaker Onset Date: ~11/28/16 Previous back surgery Onset Date: Unknown S/P ICD (internal cardiac defibrillator) procedure Onset Date: Unknown Family History: Family History (Last Reviewed 07/15/18 @ 16:22 by Fatmata Mcwilliams RN) Father CHF (congestive heart failure) Depression Mother Heart disease Grandmother Colon cancer Social History: Patient Lives/Resources With Spouse Utilized Preferred Language Mohawk Do you have any moravian or Yes: Scientology cultural preference? Smoking Status Never smoker Have you smoked in the past 12 No months Do you dip or chew tobacco No Abuse History No History of abuse Psych History No pertinent hx Alcohol Use none Drug Use none (Last Updated 06/19/18 @ 10:10 by Ulices Buenrostro MD) No Social History Section defined Review Of Systems (GEN) - Review of Systems Generalized/Overall Review: Absent: Weakness, Chills, Fever EENTM: Absent: Blurred Vision Respiratory: Absent: Cough, Shortness of Breath Cardiac: Absent: Chest Pain, Edema, Palpitations Abdominal: Absent: Nausea, Vomiting Genitourinary: Absent: Urgency, Frequency Musculoskeletal: Present: Joint Pain, Back Pain Immunizations: IMMUNIZATION HX Immunizations Up to Date Yes History of Influenza Vaccine Yes Hx Pneumococcal Vaccination Yes Allergies/Adverse Reactions: Allergies Allergy/AdvReac Type Severity Reaction Status Date / Time Steri Strip AdvReac Mild Other Uncoded 07/15/18 16:24 Home Medications: HOME MEDICATIONS Polyethylene Glycol 3350 [Miralax] 17 gm PO HS PRN 01/18/13 [Last Taken Unknown] Simvastatin [Simvastatin (Zocor)] 40 mg PO HS 01/18/13 [Last Taken Unknown] Torsemide [Demadex] 20 mg PO DAILY 01/18/13 [Last Taken Unknown] Aspirin [Aspirin Chewable] 81 mg PO DAILY 12/19/14 [Last Taken Unknown] docusate sodium 100 mg tablet 200 mg PO BID 02/21/18 [Last Taken Unknown] gabapentin 300 mg capsule 300 mg PO BID 02/21/18 [Last Taken Unknown] insulin U- 100 regular human 100 unit/mL injection solution 4 units SUB-Q 1200 PRN 02/21/18 [Last Taken Unknown] insulin syringe U-100 with needle 0.3 mL 29 gauge x 1/2" See Dose Instructions .ROUTE .MEDSUPPLY #10 ea 02/21/18 [Last Taken Unknown] insulin syringe U-100 with needle 1 mL 29 gauge x 1/2" See Dose Instructions .ROUTE .MEDSUPPLY #1 ea 02/21/18 [Last Taken Unknown] mirtazapine 30 mg tablet 30 mg PO HS 02/21/18 [Last Taken Unknown] xssvkdwr-sbf-rwxur acid 0.4 mg-lycopene 300 mcg-lutein 250 mcg tablet 1 tab PO DAILY 02/21/18 [Last Taken Unknown] flash glucose sensor kit See Dose Instructions .ROUTE .MEDSUPPLY #3 ea 02/23/18 [Last Taken Unknown] insulin aspar prt-insulin aspart 100 unit/mL (70-30) subcutaneous soln 34 units SUB-Q .BREAKFAST 05/08/18 [Last Taken Unknown] metoprolol tartrate 25 mg tablet 25 mg PO HS tab 05/08/18 [Last Taken Unknown] Insulin Aspart Prot/Insuln Asp [Novolog Mix 70/30] 32 units SQ 1200,1700 07/15/18 [Last Taken Unknown] Metoprolol Tartrate 50 mg PO DAILY 07/15/18 [Last Taken Unknown] Omeprazole 40 mg PO DAILY 07/15/18 [Last Taken Unknown] Quinapril HCl 40 mg PO DAILY 07/15/18 [Last Taken Unknown] Spironolactone 25 mg PO DAILY 07/15/18 [Last Taken Unknown] metFORMIN HCL [Metformin HCl] 1,000 mg PO BID 07/15/18 [Last Taken Unknown] Exam - Exam Vital Signs: Vital Signs - Last Taken Temp 37 C 07/15/18 16:32 Pulse 70 07/15/18 16:32 Resp 18 07/15/18 16:32 BP 136/63 07/15/18 16:32 Pulse Ox 97 07/15/18 16:32 Constitutional: Present: Alert, Oriented x3, Cooperative ENT Exam: Present: hearing grossly normal Eye Exam: bilateral eye: normal inspection, PERRL, EOMI Neck: Present: supple Respiratory: Present: normal breath sounds, No rales, No wheezing Cardiovascular/Chest: Present: regular rate, rhythm, no JVD, no murmur Abdomen: Present: Normal bowel sounds, soft, nontender, nondistended Extremity: Present: no calf tenderness, pedal edema, other - LLE wrapped in OSWALDO, positive tenderness over the patella Assessment/Plan - Assessment/Plan (1) Fall Assessment: accidental Problem: Acute (2) Knee pain, left Assessment: contusion Problem: Acute (3) Diabetes mellitus Problem: Chronic Qualifiers: Diabetes mellitus type: type 2 (4) ARUN (obstructive sleep apnea) Problem: Chronic (5) CAD (coronary artery disease) Problem: Chronic (6) Hypertension Problem: Chronic Qualifiers: Hypertension type: essential hypertension Qualified Code(s): I10 - Essential (primary) hypertension (7) CHF (congestive heart failure) Problem: Chronic Qualifiers: Heart failure type: combined systolic and diastolic Heart failure chronicity: chronic Qualified Code(s): I50.42 - Chronic combined systolic (congestive) and diastolic (congestive) heart failure (8) Back pain Problem: Chronic Qualifiers: Back pain location: low back pain Chronicity: chronic Back pain laterality: midline Sciatica presence: without sciatica Qualified Code(s): M54.5 - Low back pain; G89.29 - Other chronic pain
[2018-07-15] MEDS ORDERED: POLYETHYLENE GLYCOL 3350 119 GM BTL PO PRN (19:23)
[2018-07-15] MEDS ORDERED: traMADol HCL 50 MG TABLET PO PRN (19:28)
[2018-07-15] MEDS ORDERED: ACETAMINOPHEN 500 MG TABLET PO PRN (19:28)
[2018-07-15] MEDS ORDERED: INSULIN ASPART PROT/INSULN ASP 100 UNITS/ML VIAL SC SCH (19:30)
[2018-07-15] MEDS ORDERED: metFORMIN HCL 500 MG TABLET ONE (20:21)
[2018-07-15] MEDS: DOCUSATE SODIUM 100 MG CAPSULE PO SCH (20:27)
[2018-07-15] MEDS: GABAPENTIN 300 MG CAPSULE PO SCH (20:29)
[2018-07-15] MEDS: METOPROLOL TARTRATE 50 MG TABLET PO SCH (20:49)
[2018-07-15] MEDS ORDERED: METOPROLOL TARTRATE 25 MG TABLET PO SCH (21:00)
[2018-07-15] MEDS ORDERED: MIRTAZAPINE 15 MG TABLET PO SCH (21:00)
[2018-07-15] MEDS ORDERED: SIMVASTATIN 40 MG TABLET PO SCH (21:00)
[2018-07-16] MEDS ORDERED: PANTOPRAZOLE SODIUM 40 MG TABLET.EC PO SCH (07:00)
[2018-07-16] MEDS: DOCUSATE SODIUM 100 MG CAPSULE PO SCH (08:54)
[2018-07-16] MEDS: METOPROLOL TARTRATE 50 MG TABLET PO SCH (08:55)
[2018-07-16] MEDS: GABAPENTIN 300 MG CAPSULE PO SCH (08:55)
[2018-07-16] MEDS ORDERED: ENALAPRIL MALEATE 20 MG TABLET PO SCH (09:00)
[2018-07-16] MEDS ORDERED: MULTIVIT-MIN/FA/LYCOPEN/LUTEIN 1 TAB TABLET PO SCH (09:00)
[2018-07-16] MEDS ORDERED: TORSEMIDE 20 MG TABLET PO SCH (09:00)
[2018-07-16] MEDS ORDERED: SPIRONOLACTONE 25 MG TABLET PO SCH (09:00)
[2018-07-16] MEDS ORDERED: TORSEMIDE 10 MG TABLET PO SCH (09:00)
[2018-07-16] MEDS ORDERED: ASPIRIN 81 MG TAB.CHEW PO SCH (09:00)
[2018-07-16] MEDS ORDERED: INSULIN ASPART PROT/INSULN ASP 100 UNITS/ML VIAL SC SCH ×2 (09:15→12:00)
--- NOTE | 2018-07-16 09:46 | PN ---
Progess Note - Interim Date: 07/16/18 Time: 09:45 Narrative: 07/16/18 09:45 Patient having right foot pain and very tender medial collateral ligament area tenderness. Will get Xray of right foot and get ortho consult. needing ssist of 2 to transfer per PT.
--- NOTE | 2018-07-16 10:15 | PN ---
Progess Note - Interim Date: 07/16/18 Time: 10:15 Narrative: 07/16/18 10:15 Imaging reviewed and there are no acute findings of fracture or hardware complication. Recommend rehab/SNF placement based on activity level and outpatient follow up with me on Wed or Fri of this week. Romero Engel MD 07/16/18 10:16
[2018-07-16] MEDS ORDERED: INSULIN REGULAR, HUMAN 100 UNITS/ML VIAL SC PRN (12:00)
--- NOTE | 2018-07-16 13:18 | DS ---
(1) Fall Problem: Acute Qualifiers: Encounter type: initial encounter Qualified Code(s): W19.XXXA - Unspecified fall, initial encounter (2) Knee pain, left Problem: Acute Qualifiers: Chronicity: acute Qualified Code(s): M25.562 - Pain in left knee (3) Diabetes mellitus Problem: Chronic Qualifiers: Diabetes mellitus type: type 2 (4) ARUN (obstructive sleep apnea) Problem: Chronic (5) CAD (coronary artery disease) Problem: Chronic (6) Hypertension Problem: Chronic Qualifiers: Hypertension type: essential hypertension Qualified Code(s): I10 - Essential (primary) hypertension (7) CHF (congestive heart failure) Problem: Chronic Qualifiers: Heart failure type: combined systolic and diastolic Heart failure chronicity: chronic Qualified Code(s): I50.42 - Chronic combined systolic (congestive) and diastolic (congestive) heart failure (8) Back pain Problem: Chronic Qualifiers: Back pain location: low back pain Chronicity: chronic Back pain laterality: midline Sciatica presence: without sciatica Qualified Code(s): M54.5 - Low back pain; G89.29 - Other chronic pain Description of Stay: Jose Yu, is a 78-year-old white male, patient of Dr. Buenrostro, with past medical history of diabetes mellitus type 2, hypertension, hyperlipidemia, coronary artery disease, ARUN, who was admitted on 07/15/2018 because of a fall and left knee pain. 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 He incurred left knee as well as left hip pain. His back was also a little sore. The patient says that if he is resting and laying down his pain is 2/10 but when he starts putting weight on it the pain is 9/10. His x-ray of the knee did not show any acute fracture or any hardware complication. His x-ray of his back showed degenerative disc disease. X-ray of his left hip showed no acute osseous findings. He had difficulty of ambulation due to pain and was admitted for observation. Xray of his right foot showed no acute osseous abnormality except for soft tissue swelling. The patient was referred to PT and he needed 2 person assist to transfer. Orthopedics was consulted and they recommended SNF/rehab placement and to follow up with them on Monday or Monday. Procedures Performed: none Discharge Location: [facility] Disposition: Intermediate Care Facility ICF Condition: Good Level of Care: ICF Discharge Activity: Activity as tolerated Discharge Diet: Consistent carbs, Low salt [facility]ci Therapy: Physicial Therapy, Occupation Therapy Referrals: Ulices Buenrostro MD [Primary Care Provider] - Additional Patient Instructions (free text): -Please make TCM appointment unless detention discharge. Thank you! Fide @ [phone]. Follow up with PCP- Dr. Buenrostro- in 1 week. Schedule an appointment with Orthopedics- Dr. Engel- this Monday or Monday. Prescriptions (Any new or edited meds): Acetaminophen [Tylenol] 500 mg PO QID PRN #30 tablet PRN Reason: Pain traMADol HCL [Tramadol HCl] 50 mg PO QID PRN #20 tab PRN Reason: Moderate Pain (Pain Scale 4-6) Complete Home Medications List: Complete Home Medication List: Polyethylene Glycol 3350 [Miralax] 17 gm PO HS PRN 01/18/13 Simvastatin [Zocor] 40 mg PO HS 01/18/13 Torsemide [Demadex] 20 mg PO DAILY 01/18/13 Aspirin [Aspirin Chewable] 81 mg PO DAILY 12/19/14 docusate sodium 100 mg tablet 200 mg PO BID 02/21/18 gabapentin 300 mg capsule 300 mg PO BID 02/21/18 insulin U- 100 regular human 100 unit/mL injection solution 4 units SUB-Q 1200 PRN 02/21/18 insulin syringe U-100 with needle 0.3 mL 29 gauge x 1/2" See Dose Instructions .ROUTE .MEDSUPPLY #10 ea 02/21/18 insulin syringe U-100 with needle 1 mL 29 gauge x 1/2" See Dose Instructions .ROUTE .MEDSUPPLY #1 ea 02/21/18 mirtazapine 30 mg tablet 30 mg PO HS 02/21/18 gjbaplde-mfk-ngekx acid 0.4 mg-lycopene 300 mcg-lutein 250 mcg tablet 1 tab PO DAILY 02/21/18 flash glucose sensor kit See Dose Instructions .ROUTE .MEDSUPPLY #3 ea 02/23/18 insulin aspar prt-insulin aspart 100 unit/mL (70-30) subcutaneous soln 34 units SUB-Q .BREAKFAST 05/08/18 metoprolol tartrate 25 mg tablet 25 mg PO HS tab 05/08/18 Insulin Aspart Prot/Insuln Asp [Novolog Mix 70/30] 32 units SQ 1200,1700 07/15/18 Metoprolol Tartrate 50 mg PO DAILY 07/15/18 Omeprazole 40 mg PO DAILY 07/15/18 Quinapril HCl 40 mg PO DAILY 07/15/18 Spironolactone 25 mg PO DAILY 07/15/18 metFORMIN HCL [Metformin HCl] 1,000 mg PO BID 07/15/18 Acetaminophen [Tylenol] 500 mg PO QID PRN #30 tablet 07/16/18 traMADol HCL [Tramadol HCl] 50 mg PO QID PRN #20 tab 07/16/18
[2018-07-16 16:34] VITALS: BP 117/52
== END 2018-07-16 16:45 ==
LOC: ER 12:43 → MS 12:43
PROVIDERS: ADMIT Internal Medicine; ATTEND Internal Medicine
CPT/HCPCS: 72110; 73502; 73562; 73630; 94660; 96372; 97110; 97162; 99284; G0378; G8978; G8979; G8980